=== PATIENT | female | born 1945 | race Caucasian/White ===

== ENCOUNTER 2016-10-03 09:40 | Inpatient (IN) ==
--- NOTE | 2016-10-03 09:58 | Emergency Department Note ---
Disposition Clinical Impression: New onset atrial fibrillation, Atrial fibrillation with RVR Disposition: Admitted As Inpatient Condition: Fair Referrals: NO,PCP [Non-Partnered Physician] - Forms: ED Satisfaction Letter SOB HPI - General Chief Complaint: ED Shortness of Breath/Dyspnea Stated Complaint: MICHELLE Time Seen by Provider: 10/03/16 09:44 Source: EMS Limitations: no limitations Nursing Notes Reviewed: Yes Vital Signs Reviewed: Yes - History of Present Illness Pt Subjective Complaint: shortness of breath Onset (ago): week(s) (2) Severity: moderate Consistency/Duration: constant, gradually worsening Improves with: oxygen, rest Worsens with: exertion Known history of: COPD Associated symptoms: Denies: fever, sputum production, nausea/vomiting, syncope Treatment prior to arrival: oxygen Cough present: No - Related Data Home Medications Medication Instructions Recorded Confirmed Allopurinol 11/03/15 Atenolol 11/03/15 Atorvastatin 11/03/15 Clopidogrel 11/03/15 Diltiazem 11/03/15 Gabapentin Enacarbil 11/03/15 K-Dur 11/03/15 Lasix 11/03/15 Levothyroxine 11/03/15 Lisinopril 11/03/15 Nitrostat 11/03/15 Omeprazole 11/03/15 Percocet 10-325 mg Tablet 11/03/15 Prednisone 11/03/15 Vitamin D3 11/03/15 Previous Rx's Medication Instructions Recorded Diltiazem HCl [Cardizem Cd] 360 mg PO DAILY #30 cap.er.24h 11/03/15 Allergies Allergy/AdvReac Type Severity Reaction Status Date / Time aspirin Allergy Anaphylaxis Verified 10/03/16 09:58 azithromycin Allergy Anaphylaxis Verified 10/03/16 09:58 cephalexin Allergy Anaphylaxis Verified 10/03/16 09:58 clonidine Allergy Anaphylaxis Verified 10/03/16 09:58 Influenza Virus Vaccines Allergy Anaphylaxis Verified 10/03/16 09:58 iodine Allergy Anaphylaxis Verified 10/03/16 09:58 latex Allergy Anaphylaxis Verified 10/03/16 09:58 levofloxacin [From Levaquin] Allergy Anaphylaxis Verified 10/03/16 09:58 nadolol Allergy Anaphylaxis Verified 10/03/16 09:58 nifedipine Allergy Anaphylaxis Verified 10/03/16 09:58 Penicillins Allergy Hives Verified 11/03/15 15:04 Pneumococcal Vaccine Allergy Anaphylaxis Verified 10/03/16 09:58 Sulfa (Sulfonamide Allergy Hives Verified 11/03/15 15:04 Antibiotics) All systems ED: reviewed and negative except as stated. Constitutional: Reports: weakness Cardiovascular: Reports: palpitations, dyspnea on exertion Past Medical History - Past Medical History Source: patient, old records reviewed, nursing notes reviewed Medical history: Reports: cancer, CHF, COPD, hypertension, renal disease, other - Social History Smoking Status: Never smoker Smokeless Tobacco Status: No Alcohol use: Reports: none Drug use: Reports: none Physical Exam - General Limitations: no limitations General appearance: alert - Head Head exam: atraumatic, normocephalic, normal inspection - Eye Eye exam: Present: normal appearance, PERRL, EOMI - Expanded Eye Exam Pupils: Left: reactive - ENT ENT exam: normal exam, normal oropharynx, mucous membranes moist - Expanded ENT Exam External ear exam: Present: normal external inspection Mouth exam: Present: normal external inspection Teeth exam: Present: normal inspection Throat exam: Present: normal inspection - Neck Neck exam: Present: normal inspection, full ROM, trachea midline - Chest Chest inspection: Present: normal inspection, symmetric chest wall rise - Respiratory Respiratory exam: Present: prolonged expiratory phase (diminished bilat) - Cardiovascular Cardiovascular exam: Present: tachycardia, irregular rhythm - Abdominal Exam Abdominal exam: Present: soft, Non-Tender. Absent: tenderness, distention, guarding, rebound, rigidity - Extremities Exam Extremities exam: Present: normal inspection, full ROM. Absent: tenderness, pedal edema - Expanded Upper Extremity Exam Shoulder exam: Present: normal inspection, full ROM Arm exam: Present: normal inspection, full ROM Elbow exam: Present: normal inspection, full ROM Forearm/Wrist exam: Present: normal inspection, full ROM Hand exam: Present: normal inspection, full ROM Vascular exam: Normal: capillary refill, radial pulse - Expanded Lower Extremity Exam Hip/Pelvis exam: Present: normal inspection, full ROM Upper leg exam: Present: normal inspection, full ROM Knee exam: Present: normal inspection, full ROM Lower leg exam: Present: normal inspection, full ROM Ankle exam: Present: normal inspection, full ROM Foot/toe exam: Present: normal inspection, full ROM Neurovascular/Tendon exam: Absent: motor deficit, sensory deficit, tendon deficit - Back Exam Back exam: Present: normal inspection, full ROM. Absent: tenderness - Neurological Exam Neurological exam: Present: alert, oriented X3 - Expanded Neurological Exam Patient oriented to: Present: person, place, time Coma Scale Eye Opening: Spontaneous Coma Scale Motor Response: Obeys Commands Coma Scale Verbal Response: Oriented Coma Scale Total: 15 - Psychiatric Psychiatric exam: Present: normal affect, normal mood - Skin Skin exam: Present: warm, dry, intact, normal color Course - Reevaluation(s) Reevaluation #1: HR 88 still in afib Time: 11:18 Vital Signs Temperature 98.3 F 10/03/16 09:41 Pulse Rate 134 10/03/16 09:41 Respiratory Rate 22 10/03/16 09:41 Blood Pressure 146/116 10/03/16 09:41 O2 Sat by Pulse Oximetry 95 10/03/16 09:41 Temperature 98.3 F 10/03/16 09:41 Pulse Rate 98 10/03/16 11:08 Respiratory Rate 20 10/03/16 11:08 Blood Pressure 174/110 10/03/16 11:08 O2 Sat by Pulse Oximetry 94 10/03/16 11:08 Oxygen Delivery Oxygen Delivery Room Air Shortness of Breath/Dyspnea - Differential Diagnosis Likely: acute exacerbation of chronic obstructive airways disease, congestive heart failure, pneumonia, asthma with exacerbation, pulmonary embolism, pneumothorax, arrhythmia - Medical Records Medical records reviewed: Yes I reviewed the patient's medical records. - Lab Data Lab results reviewed: Yes I reviewed the patient's lab results. Result diagrams: 10/03/16 10:14 10/03/16 10:14 Lab Results 10/03/16 10/03/16 10/03/16 Range/Units 10:14 10:14 10:14 WBC 9.7 (4.3-11.1) K/mcL RBC 4.77 (3.82-4.97) M/mcL Hgb 14.4 (11.5-15.4) g/dL Hct 42.3 (35.3-44.9) % MCV 88.7 (83.0-100.0) fL MCH 30.2 (28.0-33.3) pg MCHC 34.0 (31.6-35.5) g/dL RDW 13.2 (11.5-14.5) % Plt Count 294 (140-400) K/mcL MPV 10.1 (9.4-12.4) fL Immature Gran % 0.3 (0-4) % Seg Neutrophils % 82.9 % Lymphocytes % 11.5 % Monocytes % 5.0 % Eosinophils % 0.1 % Basophils % 0.2 % Neutrophils # 8.0 (1.6-8.9) K/mcL Lymphocytes # 1.1 (0.6-4.6) K/mcL Monocytes # 0.5 (0.0-1.3) K/mcL Eosinophils # 0.0 (0.0-0.6) K/mcL Basophils # 0.0 (0.0-0.2) K/mcL Immature Plt Fraction 4.4 (1.1-6.1) % PT 12.3 H (9.4-12.1) Seconds INR 1.1 APTT 29.0 (26.0-36.0) Seconds Sodium 140 (136-145) mEq/L Potassium 3.8 (3.5-4.5) mEq/L Chloride 103 (98-109) mEq/L Carbon Dioxide 25 (19-29) mEq/L BUN 12 (7-20) mg/dL Creatinine 0.88 (0.57-1.11) mg/dL Est GFR ( Amer) > 60 (> 60) Est GFR (Non-Af Amer) > 60 (> 60) BUN/Creatinine Ratio 14 (6-26) Glucose 131 H (70-99) mg/dL Calculated Osmolality 292 (280-300) Calcium 10.1 (8.6-10.8) mg/dL Troponin I (0-0.03) ng/mL B-Natriuretic Peptide (0-100) pg/mL 10/03/16 10/03/16 Range/Units 10:14 10:14 WBC (4.3-11.1) K/mcL RBC (3.82-4.97) M/mcL Hgb (11.5-15.4) g/dL Hct (35.3-44.9) % MCV (83.0-100.0) fL MCH (28.0-33.3) pg MCHC (31.6-35.5) g/dL RDW (11.5-14.5) % Plt Count (140-400) K/mcL MPV (9.4-12.4) fL Immature Gran % (0-4) % Seg Neutrophils % % Lymphocytes % % Monocytes % % Eosinophils % % Basophils % % Neutrophils # (1.6-8.9) K/mcL Lymphocytes # (0.6-4.6) K/mcL Monocytes # (0.0-1.3) K/mcL Eosinophils # (0.0-0.6) K/mcL Basophils # (0.0-0.2) K/mcL Immature Plt Fraction (1.1-6.1) % PT (9.4-12.1) Seconds INR APTT (26.0-36.0) Seconds Sodium (136-145) mEq/L Potassium (3.5-4.5) mEq/L Chloride (98-109) mEq/L Carbon Dioxide (19-29) mEq/L BUN (7-20) mg/dL Creatinine (0.57-1.11) mg/dL Est GFR ( Amer) (> 60) Est GFR (Non-Af Amer) (> 60) BUN/Creatinine Ratio (6-26) Glucose (70-99) mg/dL Calculated Osmolality (280-300) Calcium (8.6-10.8) mg/dL Troponin I 0.01 (0-0.03) ng/mL B-Natriuretic Peptide 875 H (0-100) pg/mL - Radiology Data Radiology results reviewed: Yes I reviewed the patient's radiology results. - EKG Data EKG attestation: Yes I reviewed and interpreted this EKG. Rate: Reports: tachycardia (112) Rhythm: Reports: A.Fib [place]/QRS: Reports: normal Interpretation: Reports: nonspecific ST-T wave changes Critical Care Time Critical Care Time: Yes Total Critical Care Time: 40 Attestation: Critical care performed: Time is exclusive of separately billable procedures. Time includes: direct patient care, patient reassessment, coordination of patient care, interpretation of data (laboratory data, radiology data, and respiratory data), review of patient's medical records, medical consultation and documentation of patient care. Procedures included in critical care time: Procedures excluded from critical care time:
[2016-10-03 10:35] LABS: Basophils % 0.2 %; Eosinophils % 0.1 %; Hematocrit 42.3 % (35.3-44.9); Hemoglobin 14.4 g/dL (11.5-15.4); Immature Granulocytes % 0.3 % (0-4); Immature Platelets 4.4 % (1.1-6.1); Lymphocytes # 1.1 K/mcL (0.6-4.6); Lymphocytes % 11.5 %; Mean Corpuscular Hemoglobin 30.2 pg (28.0-33.3); Mean Corpuscular Volume 88.7 fL (83.0-100.0); Mean Platelet Volume 10.1 fL (9.4-12.4); Monocytes # 0.5 K/mcL (0.0-1.3); Platelet Count 294 K/mcL (140-400); Red Blood Count 4.77 M/mcL (3.82-4.97); Red Cell Distribution Width 13.2 % (11.5-14.5); Segmented Neutrophils % 82.9 %
[2016-10-03 10:49] LABS: BUN/Creatinine Ratio 14 (6-26); Blood Urea Nitrogen 12 mg/dL (7-20); Calcium 10.1 mg/dL (8.6-10.8); Carbon Dioxide 25 mEq/L (19-29); Chloride 103 mEq/L (98-109); Glucose 131 mg/dL (70-99); Osmolality,Calculated 292 (280-300); Potassium 3.8 mEq/L (3.5-4.5); Sodium 140 mEq/L (136-145); eGFR For African Americans > 60 (> 60); eGFR For Non-African Americans > 60 (> 60)
[2016-10-03 10:51] LABS: INR 1.1; Prothrombin Time 12.3 Seconds (9.4-12.1)
[2016-10-03] MEDS ORDERED: Furosemide 40 MG/4 ML VIAL IVP ONE (11:43)
[2016-10-03] MEDS ORDERED: *HR* Enoxaparin 100 MG/ML SYRINGE SQ STA (11:51)
[2016-10-03] MEDS: Nitroglycerin 25 MG/250 ML INFUS..BTL IVC SCH (11:58)
--- NOTE | 2016-10-03 12:31 | Internal Med History&Physical ---
Date of Encounter: 10/04/16 Time of Encounter: 12:27 Assessment and Plan (1) Pulmonary edema Current visit: Yes Status: Acute 80 mg IV Lasix given in the emergency room. We will start the patient on lasix 40 mg IV twice a day. intake and output monitoring. Likely related to diastolic dysfunction from rapid aFIB. She will also be started on nitroglycerin drip. Echocardiogram Qualifiers: Qualified Code(s): J81.0 - Acute pulmonary edema (2) COPD (chronic obstructive pulmonary disease) Current visit: Yes Status: Acute No active wheezing. no need for steroids. Qualifiers: Qualified Code(s): J44.9 - Chronic obstructive pulmonary disease, unspecified (3) Atrial fibrillation with RVR Current visit: Yes Status: Acute Patient haS leland vasc score of at at least 3 because of age female sex and hypertension so should receive anticoagulation if no contraindications exist. However, she had a history of massive G.I. bleed 30 years ago. No recurrence. I gave the patient one dose of Lovenox 1 mg per KG. She is too uncomfortable to discuss long-term anticoagulation. This will be entertained throughout hospitalization. Rate is currently controlled with Cardizem drip. Echocardiogram (4) Acute respiratory failure with hypoxia Current visit: Yes Status: Acute Internal Medicine - H&P: HPI Chief complaint: sob History of present illness: Ms. Santoyo is a 71 year old female with past medical history of COPD on nighttime oxygen presents to the emergency room today with a main complain of shortness of breath. For the past week patient has been noticing worsening shortness of breath that worsens when she lays flat improve was sitting up in addition to bilateral lower extremity swelling. She denies increasing cough sputum production. No chest pain. No fevers or chills. She was found to be in atrial fibrillation with rapid ventricular response in the emergency room. No prior history of AFib. She had a prior history of massive GI bleeding 30 years ago. During my interview patient was in respiratory distress. Speaking in 3 to 4 war sentence. She was requiring 3 1/2 L of nasal oxygen to keep her saturation and early 90s. She could not tolerate Rocha catheter placed in the ER so it was removed. She refuses BiPAP. Past Med Surg Social Fam HX - Past Medical History Medical history: cancer, CHF, COPD, hypertension, renal disease, other - Social History Smoking Status: Never smoker Smokeless Tobacco Status: No Alcohol use: none Drug use: none - Family History Mother Living Status: Cause of : cancer Father Living Status: Still Living Internal Medicine - H&P: Meds Allopurinol [Zyloprim 100 MG] 100 mg PO DAILY 11/03/15 [History] Atenolol [Tenormin] 50 mg PO BID 11/03/15 [History] Atorvastatin [Lipitor] 10 mg PO HS 11/03/15 [History] Cholecalciferol (D-3) [Vitamin D] 2,000 unit PO DAILY 11/03/15 [History] Clopidogrel [Plavix] 75 mg PO DAILY 11/03/15 [History] Diltiazem HCl [Cardizem Cd] 360 mg PO DAILY #30 cap.er.24h 11/03/15 [Rx] Furosemide [Lasix] 80 mg PO DAILY 11/03/15 [History] Gabapentin [Neurontin] 300 mg PO TID 11/03/15 [History] Levothyroxine [Levothyroxine Sodium] 137 mcg PO DAILY 11/03/15 [History] Lisinopril [Zestril] 40 mg PO BID 11/03/15 [History] Nitroglycerin [Nitrostat] 0.4 mg SL AD PRN 11/03/15 [History] Omeprazole [PriLOSEC] 20 mg PO DAILY 11/03/15 [History] OxyCODONE/APAP 10/325 [Percocet 10/325 MG] 1 tab PO Q4-6H PRN 11/03/15 [History] Potassium Chloride [K-Tab ER] 20 meq PO TID 11/03/15 [History] Albuterol Sulfate [Proair Hfa] 2 puff IH Q4HR PRN 10/03/16 [History] FLUoxetine HCl [PROzac] 20 mg PO DAILY 10/03/16 [History] Oxygen 2 l .ROUTE AD 10/03/16 [History] Allergies aspirin Allergy (Verified 10/03/16 09:58) Anaphylaxis azithromycin Allergy (Verified 10/03/16 09:58) Anaphylaxis cephalexin Allergy (Verified 10/03/16 09:58) Anaphylaxis clonidine Allergy (Verified 10/03/16 09:58) Anaphylaxis Influenza Virus Vaccines Allergy (Verified 10/03/16 09:58) Anaphylaxis iodine Allergy (Verified 10/03/16 09:58) Anaphylaxis latex Allergy (Verified 10/03/16 09:58) Anaphylaxis levofloxacin [From Levaquin] Allergy (Verified 10/03/16 09:58) Anaphylaxis nadolol Allergy (Verified 10/03/16 09:58) Anaphylaxis nifedipine Allergy (Verified 10/03/16 09:58) Anaphylaxis Penicillins Allergy (Verified 11/03/15 15:04) Hives Pneumococcal Vaccine Allergy (Verified 10/03/16 09:58) Anaphylaxis Sulfa (Sulfonamide Antibiotics) Allergy (Verified 11/03/15 15:04) Hives All Systems PM: A 10-system review of systems was performed and is negative for pertinent findings except as documented above in the HPI. Review of systems: 10 point review of systems is negative except for HPI - Constitutional Vitals: Temp Pulse Resp BP Pulse Ox 98.3 F 98 18 139/105 94 10/03/16 09:41 10/03/16 11:08 10/03/16 12:24 10/03/16 12:24 10/03/16 11:08 Exam: Gen.: patient is alert oriented times 3 not in distress. Cardiac: normal S1 S2 no additional sounds are murmurs chest: bilateral basal crackles abdomen: soft nontender nondistended normal bowel sounds neuro: no focal deficit Internal Med - H&P Results - Labs CBC & Chem 7: 10/04/16 04:11 10/04/16 04:11
[2016-10-03] MEDS: Budesonide/Formoterol 80/4.5 MDI IH SCH ×2 (15:31→21:45)
[2016-10-03] MEDS: Ipratropium/Albuterol Neb 3 ML IH SCH ×3 (15:31→21:41)
[2016-10-03 15:47] LABS: Thyroid Stimulating Hormone 0.219 mcIU/mL (0.350-4.840)
[2016-10-03] MEDS: Furosemide 40 MG/4 ML VIAL IVP SCH (17:11)
[2016-10-03] MEDS: Ondansetron 4 MG/2 ML VIAL IVP PRN (17:52)
[2016-10-03] MEDS: Gabapentin 300 MG CAPSULE PO SCH (20:10)
[2016-10-03] MEDS: *HR* OxyCODONE/APAP 10/325 TABLET PO PRN (23:33)
[2016-10-04] MEDS ORDERED: *HR* Enoxaparin 80 MG/0.8 ML SYRINGE SQ SCH (01:00)
[2016-10-04] MEDS: Ipratropium/Albuterol Neb 3 ML IH SCH ×4 (03:59→21:47)
[2016-10-04 04:34] LABS: Basophils % 0.3 %; Eosinophils % 0.2 %; Hematocrit 39.3 % (35.3-44.9); Hemoglobin 13.1 g/dL (11.5-15.4); Immature Granulocytes % 0.4 % (0-4); Lymphocytes # 1.9 K/mcL (0.6-4.6); Mean Corpuscular HGB Conc 33.3 g/dL (31.6-35.5); Mean Corpuscular Hemoglobin 30.5 pg (28.0-33.3); Mean Corpuscular Volume 91.4 fL (83.0-100.0); Mean Platelet Volume 10.2 fL (9.4-12.4); Monocytes % 9.7 %; Neutrophils # 7.2 K/mcL (1.6-8.9); Platelet Count 277 K/mcL (140-400); Red Cell Distribution Width 13.8 % (11.5-14.5); Segmented Neutrophils % 70.4 %
[2016-10-04 04:49] LABS: Calcium 9.3 mg/dL (8.6-10.8); Magnesium 1.8 mg/dL (1.6-2.6); Potassium 3.8 mEq/L (3.5-4.5)
[2016-10-04] MEDS: Nitroglycerin 25 MG/250 ML INFUS..BTL IVC SCH (06:22)
[2016-10-04] MEDS: Furosemide 40 MG/4 ML VIAL IVP SCH ×2 (08:24→09:03)
[2016-10-04] MEDS: Ondansetron 4 MG/2 ML VIAL IVP PRN (08:25)
[2016-10-04] MEDS: FLUoxetine 20 MG CAPSULE PO SCH (08:25)
[2016-10-04] MEDS: Gabapentin 300 MG CAPSULE PO SCH ×2 (08:26→21:56)
[2016-10-04] MEDS ORDERED: Lisinopril 20 MG TABLET PO SCH (09:00)
--- NOTE | 2016-10-04 10:19 | Cardiology Consult Note ---
Date of Encounter: 10/04/16 Time of Encounter: 10:00 Assessment and Plan (1) Atrial fibrillation with RVR Current Visit: Yes Status: Acute New onset of Afib RVR, likely for >1 week. Main symptom is dyspnea, denies palpitations [id number] score of 3, (HTN, age, female gender). May increase to score of 4 after echo results (has clinical signs of CHF) Hesitant for anticoagulation due to GI bleed a few years ago HAS-BLED score of 3 (antiplatelet use, prior bleed, age), risk of major bleed 5.8% Will need to discuss risk/benefit of anticoagulation with patient. On lovenox 80 BID On Cardizem drip at 5mg/hr On Nitro drip at 20 mcg/min Echo from today shows EF of 60-65%, and some enlargement of left atrium Previous echo on 02/18/2016 with suboptimal windows. LVEF not determined, RV function normal, no pulm HTN. No current plan for cardioversion Plan for rate control Recommend transitioning to PO cardizem Recommend to d/c nitroglycerin (2) Pulmonary edema Current Visit: Yes Status: Acute Patient received total of 120mg of lasix yesterday and 40mg today I/O shows net volume loss of 1875mL Likely due to impaired cardiac ability due to uncontrolledatrial fibrillation Agree with nitro drip at 20 mcg/min Symptoms currently markedly improved BNP elevated at 875 Echocardiogram today to evaluate cardiac function. Likely secondary to CHF from atrial fibrillation Qualifiers: Chronicity: acute Qualified Code(s): J81.0 - Acute pulmonary edema (3) Acute respiratory failure with hypoxia Current Visit: Yes Status: Acute Hypoxia was present and increased WOB. Markedly improved after lasix and nitro drip Pulmonary edema present on CXR and diminished lung sounds Troponin is 0.01 x3 BNP elevated at 875 Likely secondary to CHF from uncontrolled rate of atrial fibrillation Discussion w patient/family: The assessment and plan as outlined above was discussed with the patient and/or family members who expressed understanding and agreement. All questions were answered. Thank you for involving us in the care of your patient. Please call with any questions. History of Present Illness Consult date: 10/04/16 Consult reason: New onset a-fib Chief complaint: dyspnea History of present illness: Ms. Santoyo is a 71 year old female who presented for at least 1 week of exertional dyspnea which progressed to dyspnea at rests. Also admits to orthopnea and new onset LE edema. Found to be in new onset of A-fib with rate of 134. Started on cardizem drip, received lasix, and on nitro drip. She diuresed 1875mL and feels much better today. She is not quite to her baseline in dyspnea but feels markedly improved. She states the swelling is now gone in her LE. Denies current CP. Denies cardiac history. Heart cath many years ago without stents placed. No hx of CHF. Has had angina in the past and is on beta sadie, statin, plavix, nitro, diltiazem, lisinipril. It appears she takes plavix because she is allergic to aspirin. Past Med Surg Social Fam HX - Past Medical History Medical history: cancer, CHF, COPD, hypertension, renal disease, other - Past Surgical History Surgical History: breast surgery, cholecystectomy, RON/BSO, thyroidectomy - Social History Smoking Status: Never smoker Smokeless Tobacco Status: No Alcohol use: none Drug use: none - Family History Mother Living Status: Cause of : cancer Father Living Status: Still Living Medications and Allergies Allopurinol [Zyloprim 100 MG] 100 mg PO DAILY 11/03/15 [History] Atenolol [Tenormin] 50 mg PO BID 11/03/15 [History] Atorvastatin [Lipitor] 10 mg PO HS 11/03/15 [History] Cholecalciferol (D-3) [Vitamin D] 2,000 unit PO DAILY 11/03/15 [History] Clopidogrel [Plavix] 75 mg PO DAILY 11/03/15 [History] Diltiazem HCl [Cardizem Cd] 360 mg PO DAILY #30 cap.er.24h 11/03/15 [Rx] Furosemide [Lasix] 80 mg PO DAILY 11/03/15 [History] Gabapentin [Neurontin] 300 mg PO TID 11/03/15 [History] Levothyroxine [Levothyroxine Sodium] 137 mcg PO DAILY 11/03/15 [History] Lisinopril [Zestril] 40 mg PO BID 11/03/15 [History] Nitroglycerin [Nitrostat] 0.4 mg SL AD PRN 11/03/15 [History] Omeprazole [PriLOSEC] 20 mg PO DAILY 11/03/15 [History] OxyCODONE/APAP 10/325 [Percocet 10/325 MG] 1 tab PO Q4-6H PRN 11/03/15 [History] Potassium Chloride [K-Tab ER] 20 meq PO TID 11/03/15 [History] Albuterol Sulfate [Proair Hfa] 2 puff IH Q4HR PRN 10/03/16 [History] FLUoxetine HCl [PROzac] 20 mg PO DAILY 10/03/16 [History] Oxygen 2 l .ROUTE AD 10/03/16 [History] Allergies aspirin Allergy (Verified 10/03/16 09:58) Anaphylaxis azithromycin Allergy (Verified 10/03/16 09:58) Anaphylaxis cephalexin Allergy (Verified 10/03/16 09:58) Anaphylaxis clonidine Allergy (Verified 10/03/16 09:58) Anaphylaxis Influenza Virus Vaccines Allergy (Verified 10/03/16 09:58) Anaphylaxis iodine Allergy (Verified 10/03/16 09:58) Anaphylaxis latex Allergy (Verified 10/03/16 09:58) Anaphylaxis levofloxacin [From Levaquin] Allergy (Verified 10/03/16 09:58) Anaphylaxis nadolol Allergy (Verified 10/03/16 09:58) Anaphylaxis nifedipine Allergy (Verified 10/03/16 09:58) Anaphylaxis Penicillins Allergy (Verified 11/03/15 15:04) Hives Pneumococcal Vaccine Allergy (Verified 10/03/16 09:58) Anaphylaxis Sulfa (Sulfonamide Antibiotics) Allergy (Verified 11/03/15 15:04) Hives All Systems Review: A 10-system review of systems was performed and is negative for pertinent findings except as documented above in the HPI. - Constitutional Constitutional: no fever(s), no headache(s) - EENT Eyes: no loss of vision - Cardiovascular Cardiovascular: dyspnea at rest, dyspnea on exertion, leg edema, no palpitations - Respiratory Respiratory: dyspnea, no cough - Gastrointestinal Gastrointestinal: no abdominal pain - Genitourinary Genitourinary: no dysuria - Integumentary Integumentary: no rash - Psychiatric Psychiatric: anxiety, depression Physical Examination Vital Signs, Last 4 Hours Temp Pulse Resp BP Pulse Ox 10/04/16 08:10 97.6 F 10/04/16 07:49 103 10/04/16 07:31 103 16 118/78 94 General: Conversant HEENT: Atraumatic Neck: No JVD Cardiac: Other (irregular rhythm. No murmur. rate normal) Lungs: Other (diminshed breath sounds throughout) Neuro: Alert and responsive Abdomen: Soft, Non-Tender Skin: No rashes noted on visualized skin Extremities: No Cyanosis, Normal Pulses, Other (trace LE edema symmetric bilaterally) Results 10/04/16 04:11 10/04/16 04:11 Lab Results 10/03/16 10/03/16 10/04/16 16:35 21:55 04:11 WBC 10.2 Hgb 13.1 Hct 39.3 Plt Count 277 Sodium Potassium Chloride Carbon Dioxide BUN Creatinine Glucose Calcium Magnesium Troponin I 0.01 0.01 10/04/16 04:11 WBC Hgb Hct Plt Count Sodium 141 Potassium 3.8 Chloride 100 Carbon Dioxide 29 BUN 16 Creatinine 1.64 H D Glucose 140 H Calcium 9.3 Magnesium 1.8 Troponin I Consult Discharge Plan - Plan Referrals: Sharath Sims DO [Primary Care Provider] - 10/11/16 1:30 pm ()
[2016-10-04] MEDS: Budesonide/Formoterol 80/4.5 MDI IH SCH ×2 (10:45→21:50)
[2016-10-04] MEDS ORDERED: Diltiazem CD (24hr) 180 MG CAPSULE PO SCH (11:45)
--- NOTE | 2016-10-04 12:00 | Internal Med Progress Note ---
<Shaka Morillo - Last Filed: 10/04/16 16:11> Date of Encounter: 10/04/16 Time of Encounter: 11:56 - Assessment and plan (1) Pulmonary edema Current Visit: Yes Status: Acute Assessment and plan: patient admitted with increased shortness of breath x1 week, worse with laying flat, bilateral lower extremity swelling. Pulmonary edema demonstrated on CXR. Patient received 80mg IV lasix at ED, now on 40mg IV lasix BID. BNP 875 Tropes x3 negative I/O: net negative 1.5L in the past 24 hours. Echo showed LVEF 60%, normal LV size and systolic function, indeterminate LV diastolic funciton, RV size normal. mild-moderate tricuspid regurgitation. estimated RVSP 33 mmHg, no pulmonary hypertension. etiology likely secondary to diastolic dysfunction. Plan: cardio on board for recommendations. holding lasix and lisinopril due to JANNY nitro drip stopped due to hypotension. PO cardizem to 120 PO BID per cardiology. stop IV cardizem continue atenolol. strict I/O Qualifiers: Chronicity: acute Qualified Code(s): J81.0 - Acute pulmonary edema (2) CHF (congestive heart failure) Current Visit: Yes Status: Acute Assessment and plan: plan as above Qualifiers: Congestive heart failure type: diastolic Congestive heart failure chronicity: acute on chronic Qualified Code(s): I50.33 - Acute on chronic diastolic (congestive) heart failure (3) Atrial fibrillation with RVR Current Visit: Yes Status: Acute Assessment and plan: New onset Afib with RVR CHAds/Vasc score at least 3. Patient not on anticoagulation at home, has hx of GI bleed 30 years ago. Has Bled score: 4 (HTN, prior bleeding, age, antiplatelet): alternatives to anticoagulation should be considered, 8.9% risk Plan: Eliquis started by cardiology, and d/c plavix. Transitioned to PO cardizem D/C nitro drip appreciate cardiology recommendations. (4) COPD (chronic obstructive pulmonary disease) Current Visit: Yes Status: Acute Assessment and plan: patient has hx of COPD, on 2L oxygen at night. currently requiring 2L oxygen continuously Plan: wean off oxygen as tolerated continue bronchodilators. Qualifiers: COPD type: unspecified COPD Qualified Code(s): J44.9 - Chronic obstructive pulmonary disease, unspecified (5) Hypothyroidism Current Visit: Yes Status: Acute Assessment and plan: decreased home dose of synthroid to 112 due to elevated TSH. Qualifiers: Hypothyroidism type: unspecified Qualified Code(s): E03.9 - Hypothyroidism , unspecified (6) DVT prophylaxis Current Visit: Yes Status: Acute Assessment and plan: started on Eliquis today by cardiology. - Subjective Interval history: 71 year old female evaluated. She was sitting at the side of the bed. She denies nausea, vomiting, diarrhea, fever, chills, dizziness. She denies any pain. States that her breathing is improved since admission. She denies any complaints today. - Constitutional Vitals: Temp Pulse Resp BP Pulse Ox 97.4 F L 106 16 95/69 94 10/04/16 11:25 10/04/16 11:25 10/04/16 11:25 10/04/16 11:25 10/04/16 11:25 General appearance: Present: A&O X 3, pleasant, no acute distress, answers questions appropriately - Head Head exam: Present: atraumatic, normocephalic - Neck Neck exam general surgery: Present: supple, trachea midline - Respiratory Additional comments: rales heard on left side. decreased breath sounds present on lower lobes bilaterally. - Cardiovascular Cardiovascular exam: Present: irregular rhythm - GI/Abdominal GI/Abdominal exam: Present: distended, normal bowel sounds. Absent: tenderness - Extremities Exam Extremities exam: Absent: cyanotic Additional comments: +1 pitting edema on lower extremities bilaterally. - Neurological Exam Neurological exam: Present: alert, oriented X3, no focal deficits - Psychiatric Psychiatric exam: Present: normal affect, normal mood Internal Medicine: Result - Labs CBC & Chem 7: 10/04/16 04:11 10/04/16 04:11 Labs: Short CBC 10/04/16 Range/Units 04:11 WBC 10.2 (4.3-11.1) K/mcL Hgb 13.1 (11.5-15.4) g/dL Hct 39.3 (35.3-44.9) % Plt Count 277 (140-400) K/mcL Neutrophils # 7.2 (1.6-8.9) K/mcL BMP 10/04/16 04:11 Sodium 141 Potassium 3.8 Chloride 100 Carbon Dioxide 29 BUN 16 Creatinine 1.64 H D Glucose 140 H Calcium 9.3 Cardiac Enzymes 10/03/16 10/03/16 Range/Units 16:35 21:55 Troponin I 0.01 0.01 (0-0.03) ng/mL - ABG Interpretation ABG results: PT/INR, D-dimer PT 12.3 Seconds (9.4-12.1) H 10/03/16 10:14 Consult Discharge Plan - Plan Referrals: Sharath Sims DO [Primary Care Provider] - 10/11/16 1:30 pm () <Jb Peterson - Last Filed: 10/04/16 17:43> Date of Encounter: 10/04/16 - Assessment and plan (1) Acute respiratory failure with hypoxia Current Visit: Yes Status: Acute Assessment and plan: Due to pulmonary edema. Wean oxygen as able. (2) Pulmonary edema Current Visit: Yes Status: Acute Qualifiers: Chronicity: acute Qualified Code(s): J81.0 - Acute pulmonary edema (3) CHF (congestive heart failure) Current Visit: Yes Status: Acute Qualifiers: Congestive heart failure type: diastolic Congestive heart failure chronicity: acute on chronic Qualified Code(s): I50.33 - Acute on chronic diastolic (congestive) heart failure (4) New onset atrial fibrillation Current Visit: Yes Status: Acute Assessment and plan: Persistent. (5) COPD (chronic obstructive pulmonary disease) Current Visit: Yes Status: Acute Qualifiers: COPD type: unspecified COPD Qualified Code(s): J44.9 - Chronic obstructive pulmonary disease, unspecified (6) Hypothyroidism Current Visit: Yes Status: Acute Qualifiers: Hypothyroidism type: acquired Qualified Code(s): E03.9 - Hypothyroidism, unspecified - Constitutional Vitals: Temp Pulse Resp BP Pulse Ox 97.4 F L 114 16 128/79 96 10/04/16 16:05 10/04/16 16:05 10/04/16 16:05 10/04/16 16:05 10/04/16 16:05 Internal Medicine: Result - Labs CBC & Chem 7: 10/04/16 04:11 10/04/16 04:11 Labs: Short CBC 10/04/16 Range/Units 04:11 WBC 10.2 (4.3-11.1) K/mcL Hgb 13.1 (11.5-15.4) g/dL Hct 39.3 (35.3-44.9) % Plt Count 277 (140-400) K/mcL Neutrophils # 7.2 (1.6-8.9) K/mcL BMP 10/04/16 04:11 Sodium 141 Potassium 3.8 Chloride 100 Carbon Dioxide 29 BUN 16 Creatinine 1.64 H D Glucose 140 H Calcium 9.3 Cardiac Enzymes 10/03/16 Range/Units 21:55 Troponin I 0.01 (0-0.03) ng/mL - ABG Interpretation ABG results: PT/INR, D-dimer PT 12.3 Seconds (9.4-12.1) H 10/03/16 10:14 - Attending Attestation I examined this patient and my medical decision-making was reviewed with the Resident Physician on 10/04/16. I agree with the documented findings, disposition and treatment plan as described except to the extent set forth below. Ms. Santoyo is currently admitted for acute exac of chronic diastolic heart failure/ pulmonary edema. She remains high risk due to potential for worsening respiratory status. Ms Santoyo is off Card drip. She has no specific complaints though her heartrate is still up and down. No fever or chills. No chest pain. Appreciate cardiology input. Exam Alert. Comfortable Heart irreg 90-140 Lungs diminished I/P 1. Acute pulmonary edema 2. acute diastolic heart failure Further diagnoses and plan as above.
--- NOTE | 2016-10-04 14:27 | ECHO - Doppler Report ---
Echocardiogram Name: Maddi Santoyo Date of Study: 10/04/2016 Date: 1945 Ht: 58.0 in Medical Record#: [id number] Age: 71 Wt: 194.0 lb Gender: Female BSA: 1.8 Order #: [id number] Location: [facility] Room #: 2N14 Reading Physician: Janie Garibay DO Supervisor Bindery: Rafael Apple RN Ordering Physician: Juliano Trujillo MD Primary Physician: Sharath Sims DO Indications: Arrhythmia Impressions: LVEF 60%. Normal left ventricular size and systolic function. Indeterminate left ventricular diastolic function RV size is normal. Function appears normal in the PLAX and PSAX views but not well seen in apical or subcostal views. Mild-moderate tricuspid regurgitation. Estimated RVSP was 33 mmHg. No pulmonary hypertension. Left Ventricular Wall Motion: Rest Echo Findings All wall segments showed normal motion. Findings: Study Quality * Technically adequate exam. Left Ventricle * LVEF 60%. * Normal LV chamber size, wall thickness and function. * Indeterminate diastolic function. ECG Findings * Atrial fibrillation. Aortic Valve * Trileaflet aortic valve. * Normal aortic valve structure. * No aortic stenosis. * Trace aortic regurgitation. Mitral Valve * Normal mitral valve structure. * No mitral stenosis. * Trace mitral regurgitation. Tricuspid Valve * Normal tricuspid valve structure. * Mild-moderate tricuspid regurgitation. * Estimated RA pressure is 3 mmHg. * Estimated RVSP is 33 mmHg. * No pulmonary hypertension. Pulmonic Valve * Pulmonic valve is not well visualized. * No pulmonic stenosis. * No pulmonic regurgitation. Pulmonary Artery * Pulmonary artery not well visualized. Right Ventricle * Normal right ventricular size. Function appears normal in the PLAX and PSAX views. Not perfectly visualized in the apical or subcostal views. TD velocity 9.65 cm/s. Right Atrium * Normal right atrial size. Left Atrium * Severely dilated left atrium. Interatrial Septum * No evidence of PFO by color Doppler. IVC * Normal IVC dimensions and inspiratory collapse. Pericardium * There is no pericardial effusion present. Aorta * Normally sized aortic root. History Hypertension Hypercholesteremia Family History of CAD Congestive Heart Failure 02/18/2016 a Previous Echo was performed. Measurements: BP: 118/ 78 2D Normal Values RVIDd: 2.90 cm <2.7 cm IVSd: 1.00 cm 0.6 - 1.0 cm LVIDd: 4.00 cm 3.7 - 5.6 cm LVPWd: 1.00 cm 0.6 - 1.1 cm LVIDs: 2.40 cm 1.5 - 3.6 cm LA: 3.30 cm 2.0 - 4.0cm %FS: 40.00 cm >25 % LVOT Diam: 2.00 cm LA volume: 82 Mitral Valve Peak E:.89 m/sec Peak E' Lat Dillon:7.12 cm/s Peak E' Med Dillon:5.75 cm/s E/E' Lat Ratio:12.5 E/E' Med Ratio:15.5 Tricuspid Valve TV Regurg Peak Grad: 30.00mmHg TV Regurg Peak Dillon: 2.73m/sec Updated by Janie Garibay on 10/04/2016 2:17:35 PM electronically signed on 10/04/2016 2:20:58 PM with status of Final Wall Motion Scott: 1=Normal, 2=Hypokinesis, 3=Akinesis, 4=Dyskinesis, 5=Aneurysmal, 6=Hyperkinetic, X=Not Visualized (Blank)=Missing
[2016-10-04] MEDS ORDERED: *HR* Metoprolol 5 MG/5 ML VIAL IVP PRN (16:02)
[2016-10-04] MEDS: APIXABAN 5 MG TABLET PO SCH (21:55)
[2016-10-04] MEDS: Diltiazem CD (24hr) 120 MG CAPSULE PO SCH (21:56)
[2016-10-05] MEDS: Ipratropium/Albuterol Neb 3 ML IH SCH ×4 (04:32→22:11)
[2016-10-05] MEDS: *HR* OxyCODONE/APAP 10/325 TABLET PO PRN ×2 (04:47→21:53)
[2016-10-05 06:11] LABS: Basophils % 0.2 %; Eosinophils # 0.1 K/mcL (0.0-0.6); Eosinophils % 1.7 %; Hematocrit 38.6 % (35.3-44.9); Hemoglobin 12.9 g/dL (11.5-15.4); Immature Granulocytes % 0.4 % (0-4); Lymphocytes # 1.8 K/mcL (0.6-4.6); Lymphocytes % 21.6 %; Mean Corpuscular HGB Conc 33.4 g/dL (31.6-35.5); Mean Corpuscular Hemoglobin 30.9 pg (28.0-33.3); Mean Corpuscular Volume 92.6 fL (83.0-100.0); Monocytes # 0.6 K/mcL (0.0-1.3); Monocytes % 7.9 %; Neutrophils # 5.6 K/mcL (1.6-8.9); Platelet Count 241 K/mcL (140-400); Red Blood Count 4.17 M/mcL (3.82-4.97); Red Cell Distribution Width 13.9 % (11.5-14.5); Segmented Neutrophils % 68.2 %
[2016-10-05 06:23] LABS: Calcium 8.9 mg/dL (8.6-10.8); Potassium 3.5 mEq/L (3.5-4.5)
[2016-10-05 06:47] LABS: Triiodothyronine (T3) Total 0.58 ng/mL (0.58-1.59)
[2016-10-05] MEDS ORDERED: Furosemide 40 MG/4 ML VIAL IVP SCH (09:00)
[2016-10-05] MEDS ORDERED: *HR* Enoxaparin 100 MG/ML SYRINGE SQ SCH (09:00)
[2016-10-05] MEDS: APIXABAN 5 MG TABLET PO SCH ×2 (09:04→21:54)
[2016-10-05] MEDS: FLUoxetine 20 MG CAPSULE PO SCH (09:05)
[2016-10-05] MEDS: Gabapentin 300 MG CAPSULE PO SCH ×2 (09:06→21:54)
[2016-10-05] MEDS: Diltiazem CD (24hr) 120 MG CAPSULE PO SCH ×2 (09:06→21:54)
[2016-10-05] MEDS ORDERED: 0.9 % Sodium Chloride 1,000 ML IVC SCH (09:15)
[2016-10-05] MEDS: Budesonide/Formoterol 80/4.5 MDI IH SCH ×2 (10:53→22:12)
--- NOTE | 2016-10-05 14:27 | Electrocardiograph Report ---
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 : 1945 Requested By: Gio Vo Order Number: [id number] Reading MD: Kiran Chavez MD Measurements Intervals [place] Rate: 112 P: NC: 0 QRS: -1 QRSD: 96 T: 127 QT: 315 QTc: 381 Interpretive Statements ATRIAL FIBRILLATION WITH RAPID VENTRICULAR RESPONSE MINIMAL VOLTAGE CRITERIA FOR LVH, CONSIDER NORMAL VARIANT [MEETS CRITERIA IN ONE OF: R(aVL), S(V1), R(V5), R(V5/V6)+S(V1)] POSSIBLE ANTERIOR MYOCARDIAL INFARCTION [30 ms Q WAVE IN V3/V4, OR R < 0.2 mV IN V4], PROBABLY OLD MODERATE T-WAVE ABNORMALITY, CONSIDER LATERAL ISCHEMIA [-0.1+ mV T WAVE IN I/aVL/V5/V6] Electronically Signed On 10-05-2016 14:25:46 EDT by iKran Chavez MD
--- NOTE | 2016-10-05 18:56 | Internal Med Progress Note ---
Date of Encounter: 10/05/16 Time of Encounter: 10:00 - Assessment and plan (1) Atrial fibrillation with RVR Current Visit: Yes Status: Acute Assessment and plan: New onset Afib with RVR CHAds/Vasc score at least 3. Patient not on anticoagulation at home, has hx of GI bleed 30 years ago. Has Bled score: 4 (HTN, prior bleeding, age, antiplatelet): alternatives to anticoagulation should be considered, 8.9% risk Plan: Eliquis started by cardiology, and d/c plavix. Transitioned to PO cardizem D/C nitro drip appreciate cardiology recommendations. (2) Pulmonary edema Current Visit: Yes Status: Acute Assessment and plan: patient admitted with increased shortness of breath x1 week, worse with laying flat, bilateral lower extremity swelling. Pulmonary edema demonstrated on CXR. Patient received 80mg IV lasix at ED, now on 40mg IV lasix BID. BNP 875 Tropes x3 negative I/O: net negative 1.5L in the past 24 hours. Echo showed LVEF 60%, normal LV size and systolic function, indeterminate LV diastolic funciton, RV size normal. mild-moderate tricuspid regurgitation. estimated RVSP 33 mmHg, no pulmonary hypertension. etiology likely secondary to diastolic dysfunction. Plan: cardio on board for recommendations. holding lasix and lisinopril due to JANNY nitro drip stopped due to hypotension. PO cardizem to 120 PO BID per cardiology. stop IV cardizem continue atenolol. strict I/O Closely follow renal function Qualifiers: Chronicity: acute Qualified Code(s): J81.0 - Acute pulmonary edema (3) COPD (chronic obstructive pulmonary disease) Current Visit: Yes Status: Acute Assessment and plan: patient has hx of COPD, on 2L oxygen at night. currently requiring 2L oxygen continuously Plan: wean off day time oxygen as tolerated continue bronchodilators. Qualifiers: COPD type: unspecified COPD Qualified Code(s): J44.9 - Chronic obstructive pulmonary disease, unspecified (4) DVT prophylaxis Current Visit: Yes Status: Acute Assessment and plan: started on Eliquis by cardiology. (5) CHF (congestive heart failure) Current Visit: Yes Status: Acute Assessment and plan: Diastolic CHF, diuretics on hold now d/t poor renal function. Continue supportive management. Qualifiers: Congestive heart failure type: diastolic Congestive heart failure chronicity: acute on chronic Qualified Code(s): I50.33 - Acute on chronic diastolic (congestive) heart failure (6) JANNY (acute kidney injury) Current Visit: Yes Status: Acute Assessment and plan: Mild elevated creatinine, possibly due to diuretics use. Hold diuretics and lisinopril, follow renal function. Patient cannot tolerate IV fluid now because of shortness of breath and CHF. - Time Spent With Patient 25 - 35 minutes - Subjective Interval history: Patient is a 71-year-old female admitted for A. fib with rapid ventricular response and pulmonary edema. Past medical history is significant for CHF, COPD , hypertension, renal disease. Patient was seen and examined. She is not in acute respiratory distress at rest. But did have SOB when laying down. Vitals are stable. A Fib rate is well controlled. On Eliquis for anticoagulation. Diuretics is on hold because of poor renal function. We will continue closely monitor patient and the follow -up renal function.(Pt said she has only one kidney). - Constitutional Vitals: Temp Pulse Resp BP Pulse Ox 98.6 F 80 16 125/94 93 10/05/16 16:04 10/05/16 16:04 10/05/16 18:31 10/05/16 11:29 10/05/16 16:49 General appearance: Present: A&O X 3, pleasant, no acute distress, answers questions appropriately - Head Head exam: Present: atraumatic, normocephalic - Eye Eye exam: Present: PERRL, conjuntiva pink, sclera anicteric Pupils: Present: PERRL - Neck Neck exam general surgery: Present: supple, trachea midline. Absent: lymphadenopathy - Respiratory Respiratory exam: Present: CTAB. Absent: accessory muscle use, rales, rhonchi, wheezes - Cardiovascular Cardiovascular exam: Present: RRR, +S1, +S2. Absent: diastolic murmur, gallop, rubs, systolic murmur - GI/Abdominal GI/Abdominal exam: Present: normal bowel sounds, soft, no peritoneal signs. Absent: distended, tenderness - Extremities Exam Extremities exam: Present: warm, radial pulses palpable and symetrical. Absent : calf tenderness, cyanotic, pedal edema - Neurological Exam Neurological exam: Present: CN II-XII intact, oriented X3, no focal deficits. Absent: pronater drift, facial droop, speech deficit - Skin Skin exam: Present: dry, intact Internal Medicine: Result - Labs CBC & Chem 7: 10/05/16 05:55 10/05/16 05:55 Labs: Short CBC 10/05/16 Range/Units 05:55 WBC 8.1 (4.3-11.1) K/mcL Hgb 12.9 (11.5-15.4) g/dL Hct 38.6 (35.3-44.9) % Plt Count 241 (140-400) K/mcL Neutrophils # 5.6 (1.6-8.9) K/mcL BMP 10/05/16 05:55 Sodium 142 Potassium 3.5 Chloride 102 Carbon Dioxide 30 H BUN 24 H Creatinine 1.65 H Glucose 117 H Calcium 8.9 - ABG Interpretation ABG results: PT/INR, D-dimer PT 12.3 Seconds (9.4-12.1) H 10/03/16 10:14 Consult Discharge Plan - Plan Referrals: Sharath Sims DO [Primary Care Provider] - 10/11/16 1:30 pm ()
[2016-10-05] MEDS: Ondansetron 4 MG/2 ML VIAL IVP PRN (21:52)
[2016-10-06] MEDS: Ipratropium/Albuterol Neb 3 ML IH SCH ×4 (03:49→21:13)
[2016-10-06 05:12] LABS: Basophils % 0.3 %; Eosinophils # 0.1 K/mcL (0.0-0.6); Eosinophils % 1.4 %; Hematocrit 40.4 % (35.3-44.9); Hemoglobin 13.2 g/dL (11.5-15.4); Immature Granulocytes % 0.3 % (0-4); Lymphocytes # 2.2 K/mcL (0.6-4.6); Lymphocytes % 24.4 %; Mean Corpuscular HGB Conc 32.7 g/dL (31.6-35.5); Mean Corpuscular Hemoglobin 30.4 pg (28.0-33.3); Mean Corpuscular Volume 93.1 fL (83.0-100.0); Mean Platelet Volume 10.3 fL (9.4-12.4); Monocytes # 0.8 K/mcL (0.0-1.3); Monocytes % 8.6 %; Neutrophils # 5.7 K/mcL (1.6-8.9); Platelet Count 242 K/mcL (140-400); Red Blood Count 4.34 M/mcL (3.82-4.97); Red Cell Distribution Width 13.6 % (11.5-14.5)
[2016-10-06 05:29] LABS: BUN/Creatinine Ratio 25 (6-26); Blood Urea Nitrogen 26 mg/dL (7-20); Calcium 9.5 mg/dL (8.6-10.8); Carbon Dioxide 32 mEq/L (19-29); Chloride 101 mEq/L (98-109); Glucose 108 mg/dL (70-99); Osmolality,Calculated 299 (280-300); Potassium 3.7 mEq/L (3.5-4.5); Sodium 142 mEq/L (136-145); eGFR For African Americans > 60 (> 60); eGFR For Non-African Americans 51 (> 60)
[2016-10-06] MEDS: Diltiazem CD (24hr) 120 MG CAPSULE PO SCH (07:39)
[2016-10-06] MEDS: Gabapentin 300 MG CAPSULE PO SCH ×2 (07:39→20:40)
[2016-10-06] MEDS: FLUoxetine 20 MG CAPSULE PO SCH (07:40)
[2016-10-06] MEDS: APIXABAN 5 MG TABLET PO SCH ×2 (07:40→20:39)
--- NOTE | 2016-10-06 10:04 | Cardiology Progress Note ---
Date of Encounter: 10/06/16 Time of Encounter: 10:04 Assessment and Plan (1) Atrial fibrillation with RVR Current Visit: Yes Status: Acute New onset of Afib RVR, likely for >1 week. Main symptom is dyspnea, denies palpitations [id number] score of 3, (HTN, age, female gender). May increase to score of 4 after echo results (has clinical signs of CHF) Hesitant for anticoagulation due to GI bleed a few years ago HAS-BLED score of 3 (antiplatelet use, prior bleed, age), risk of major bleed 5.8% Will need to discuss risk/benefit of anticoagulation with patient. Echo from today shows EF of 60-65%, and some enlargement of left atrium Previous echo on 02/18/2016 with suboptimal windows. LVEF not determined, RV function normal, no pulm HTN. No current plan for cardioversion Currently on cardizem CD 120 BID, rate currently controlled, but could be improved. Will increase to 180 BID with added benefit of additional BP control. After risk/benefit discussion with patient, decided to start on eliquis Cardiology is signing off, please call with any questions/concerns. (2) Pulmonary edema Current Visit: Yes Status: Acute Likely secondary to CHF from atrial fibrillation Rate controlled and dyspnea has improved Qualifiers: Chronicity: acute Qualified Code(s): J81.0 - Acute pulmonary edema (3) Acute respiratory failure with hypoxia Current Visit: Yes Status: Acute Hypoxia was present and increased WOB. Markedly improved after lasix and nitro drip Pulmonary edema present on CXR and diminished lung sounds Troponin is 0.01 x3 BNP elevated at 875 Likely secondary to CHF from uncontrolled rate of atrial fibrillation Improved after treatment Discussion w patient/family: The assessment and plan as outlined above was discussed with the patient and/or family members who expressed understanding and agreement. All questions were answered. Thank you for involving us in the care of your patient. Please call with any questions. Subjective Principal diagnosis: A-fib RVR Interval history: Her dyspnea has improved since she was last seen. She has transitioned to cardizem CD 120 BID. She also agreed to eliquis which was been started. Risk/ benefit was discussed with the patient and she is more concerned about having a stroke then possible bleeding for eliquis. Objective Vital Signs, Last 4 Hours Temp Pulse Resp BP Pulse Ox 10/06/16 09:04 88 10/06/16 07:50 97.8 F 88 18 143/90 97 10/06/16 07:27 93 97 10/06/16 06:59 97.8 F 93 18 143/90 98 General: Conversant HEENT: Atraumatic Neck: No JVD Cardiac: Other (irregular rhythm. nomal rate.) Lungs: Other (diminished breath sounds bilaterally) Neuro: Alert and responsive Abdomen: Soft Skin: No rashes noted on visualized skin Extremities: Normal Pulses Results 10/06/16 04:10 10/06/16 04:10 Lab Results 10/06/16 10/06/16 04:10 04:10 WBC 8.8 Hgb 13.2 Hct 40.4 Plt Count 242 Sodium 142 Potassium 3.7 Chloride 101 Carbon Dioxide 32 H BUN 26 H Creatinine 1.06 Glucose 108 H Calcium 9.5 - VTE Documentation of Mechanical Device: Intermittent pneumatic compression device Consult Discharge Plan - Plan Referrals: Sharath Sims DO [Primary Care Provider] - 10/11/16 1:30 pm () Prescriptions: Apixaban [Eliquis] 5 mg PO BID #60 tablet
[2016-10-06] MEDS: *HR* OxyCODONE/APAP 10/325 TABLET PO PRN ×2 (10:33→20:43)
[2016-10-06] MEDS: Furosemide 40 MG TABLET PO SCH (10:34)
[2016-10-06] MEDS: Budesonide/Formoterol 80/4.5 MDI IH SCH ×2 (10:50→21:13)
[2016-10-06 12:15] LABS: CK-MB (CK isoenzymes) 0 % (0-4); CK-MM (CK-isoenzymes) 100 % (96-100)
[2016-10-06 12:15] LABS: CK-MB (CK isoenzymes) 0 % (0-4); CK-MM (CK-isoenzymes) 100 % (96-100)
[2016-10-06 12:55] LABS: CK Total (Ck Isoenzymes) 42 U/L (20-180); CK-BB (CK isoenzymes) 0 % (0-0)
[2016-10-06 12:55] LABS: CK Total (Ck Isoenzymes) 47 U/L (20-180); CK-BB (CK isoenzymes) 0 % (0-0)
--- NOTE | 2016-10-06 17:37 | Internal Med Progress Note ---
Date of Encounter: 10/06/16 Time of Encounter: 10:00 - Assessment and plan (1) Atrial fibrillation with RVR Current Visit: Yes Status: Acute Assessment and plan: New onset Afib with RVR CHAds/Vasc score at least 3. Patient not on anticoagulation at home, has hx of GI bleed 30 years ago. Has Bled score: 4 (HTN, prior bleeding, age, antiplatelet): alternatives to anticoagulation should be considered, 8.9% risk Plan: Eliquis started by cardiology, and d/c plavix. Transitioned to PO cardizem, increased to 180mg per cardio D/C nitro drip appreciate cardiology recommendations. (2) Pulmonary edema Current Visit: Yes Status: Acute Assessment and plan: patient admitted with increased shortness of breath x1 week, worse with laying flat, bilateral lower extremity swelling. Pulmonary edema demonstrated on CXR. Patient received 80mg IV lasix at ED, now on 40mg IV lasix BID. BNP 875 Tropes x3 negative I/O: net negative 1.5L in the past 24 hours. Echo showed LVEF 60%, normal LV size and systolic function, indeterminate LV diastolic funciton, RV size normal. mild-moderate tricuspid regurgitation. estimated RVSP 33 mmHg, no pulmonary hypertension. etiology likely secondary to diastolic dysfunction. Plan: cardio on board for recommendations. Renal function improved. Resart lasix and cont hold lisinopril PO cardizem to 180 PO BID per cardiology. stop IV cardizem continue atenolol. strict I/O Closely follow renal function Qualifiers: Chronicity: acute Qualified Code(s): J81.0 - Acute pulmonary edema (3) COPD (chronic obstructive pulmonary disease) Current Visit: Yes Status: Acute Assessment and plan: patient has hx of COPD, on 2L oxygen at night. currently requiring 2L oxygen continuously Plan: wean off day time oxygen as tolerated continue bronchodilators. Qualifiers: COPD type: unspecified COPD Qualified Code(s): J44.9 - Chronic obstructive pulmonary disease, unspecified (4) DVT prophylaxis Current Visit: Yes Status: Acute Assessment and plan: started on Eliquis by cardiology. (5) CHF (congestive heart failure) Current Visit: Yes Status: Acute Qualifiers: Congestive heart failure type: diastolic Congestive heart failure chronicity: acute on chronic Qualified Code(s): I50.33 - Acute on chronic diastolic (congestive) heart failure (6) JANNY (acute kidney injury) Current Visit: Yes Status: Acute - Subjective Interval history: Patient is a 71-year-old female admitted for A. fib with rapid ventricular response and pulmonary edema. Past medical history is significant for CHF, COPD , hypertension, renal disease. Patient was seen and examined. She is not in acute respiratory distress at rest. But did have SOB when laying down, which she said lasted for months. Vitals are stable. A Fib rate is well controlled. On Eliquis for anticoagulation. Improved renal function, will restart her po diuretics because pt has exertional SOB and leg swelling. Plan to d/c home if renal function stable or improving tomorrow. - Constitutional Vitals: Temp Pulse Resp BP Pulse Ox 97.9 F 89 17 147/88 93 10/06/16 17:29 10/06/16 17:29 10/06/16 17:29 10/06/16 17:29 10/06/16 17:29 General appearance: Present: A&O X 3, pleasant, no acute distress, answers questions appropriately - Head Head exam: Present: atraumatic, normocephalic - Eye Eye exam: Present: PERRL, conjuntiva pink, sclera anicteric Pupils: Present: PERRL - Neck Neck exam general surgery: Present: supple, trachea midline. Absent: lymphadenopathy - Respiratory Respiratory exam: Present: CTAB. Absent: accessory muscle use, rales, rhonchi, wheezes - Cardiovascular Cardiovascular exam: Present: RRR, +S1, +S2. Absent: diastolic murmur, gallop, rubs, systolic murmur - GI/Abdominal GI/Abdominal exam: Present: normal bowel sounds, soft, no peritoneal signs. Absent: distended, tenderness - Extremities Exam Extremities exam: Present: warm, radial pulses palpable and symetrical. Absent : calf tenderness, cyanotic, pedal edema - Neurological Exam Neurological exam: Present: CN II-XII intact, oriented X3, no focal deficits. Absent: pronater drift, facial droop, speech deficit - Skin Skin exam: Present: dry, intact Internal Medicine: Result - Labs CBC & Chem 7: 10/06/16 04:10 10/06/16 04:10 Labs: Short CBC 10/06/16 Range/Units 04:10 WBC 8.8 (4.3-11.1) K/mcL Hgb 13.2 (11.5-15.4) g/dL Hct 40.4 (35.3-44.9) % Plt Count 242 (140-400) K/mcL Neutrophils # 5.7 (1.6-8.9) K/mcL BMP 10/06/16 04:10 Sodium 142 Potassium 3.7 Chloride 101 Carbon Dioxide 32 H BUN 26 H Creatinine 1.06 Glucose 108 H Calcium 9.5 Cardiac Enzymes 10/03/16 10/03/16 Range/Units 16:35 21:55 CK-MB (CK-2) 0 0 (0-4) % - ABG Interpretation ABG results: PT/INR, D-dimer PT 12.3 Seconds (9.4-12.1) H 10/03/16 10:14 - Impressions Impressions Retroperitoneum Ultrasound 10/05/16 18:56 IMPRESSION: No hydronephrosis noted Bilateral cortical thinning. . There is right renal atrophy Increased echogenicity of the right kidney, either technical or due to underlying medical renal disease D/ / Bartolo Gipson MD / Bartolo Gipson MD Interpreting Provider: Bartolo Gipson MD - VTE Documentation of Mechanical Device: Intermittent pneumatic compression device Consult Discharge Plan - Plan Referrals: Sharath Sims DO [Primary Care Provider] - 10/11/16 1:30 pm () Prescriptions: Apixaban [Eliquis] 5 mg PO BID #60 tablet
[2016-10-06] MEDS: Ondansetron 4 MG/2 ML VIAL IVP PRN (19:57)
[2016-10-06] MEDS: Diltiazem CD (24hr) 180 MG CAPSULE PO SCH (20:39)
[2016-10-07] MEDS: Ipratropium/Albuterol Neb 3 ML IH SCH ×3 (04:46→16:02)
[2016-10-07 05:06] LABS: BUN/Creatinine Ratio 22 (6-26); Blood Urea Nitrogen 20 mg/dL (7-20); Calcium 9.1 mg/dL (8.6-10.8); Carbon Dioxide 33 mEq/L (19-29); Chloride 102 mEq/L (98-109); Glucose 106 mg/dL (70-99); Osmolality,Calculated 303 (280-300); Potassium 3.3 mEq/L (3.5-4.5); Sodium 145 mEq/L (136-145); eGFR For African Americans > 60 (> 60); eGFR For Non-African Americans > 60 (> 60)
[2016-10-07 07:18] VITALS: BP 145/94
[2016-10-07] MEDS: Gabapentin 300 MG CAPSULE PO SCH (08:18)
[2016-10-07] MEDS: FLUoxetine 20 MG CAPSULE PO SCH (08:18)
[2016-10-07] MEDS: Diltiazem CD (24hr) 180 MG CAPSULE PO SCH (08:19)
[2016-10-07] MEDS: APIXABAN 5 MG TABLET PO SCH (08:19)
[2016-10-07] MEDS: Furosemide 40 MG TABLET PO SCH (08:19)
[2016-10-07] MEDS: Ondansetron 4 MG/2 ML VIAL IVP PRN (09:10)
[2016-10-07] MEDS: Budesonide/Formoterol 80/4.5 MDI IH SCH (10:18)
--- NOTE | 2016-10-07 11:07 | Discharge Summary ---
Date of Encounter: 10/07/16 Time of Encounter: 10:00 - Discharge Diagnosis (1) Atrial fibrillation with RVR Priority: Primary Status: Acute (2) Pulmonary edema Priority: Secondary Status: Acute Qualifiers: Chronicity: acute Qualified Code(s): J81.0 - Acute pulmonary edema (3) COPD (chronic obstructive pulmonary disease) Priority: Secondary Status: Acute Qualifiers: COPD type: unspecified COPD Qualified Code(s): J44.9 - Chronic obstructive pulmonary disease, unspecified (4) DVT prophylaxis Priority: Secondary Status: Acute (5) CHF (congestive heart failure) Priority: Secondary Status: Acute Qualifiers: Congestive heart failure type: diastolic Congestive heart failure chronicity: acute on chronic Qualified Code(s): I50.33 - Acute on chronic diastolic (congestive) heart failure (6) JANNY (acute kidney injury) Priority: Secondary Status: Acute - Discharge Medications Prescriptions: Apixaban [Eliquis] 5 mg PO BID #60 tablet Diltiazem CD (24hr) [Cardizem CD] 180 mg PO BID #60 cap.er.24h Levothyroxine [Synthroid] 112 mcg PO DAILY@0630 #30 tablet Home Medications: Allopurinol [Zyloprim 100 MG] 100 mg PO DAILY 11/03/15 [History] Atenolol [Tenormin] 50 mg PO BID 11/03/15 [History] Atorvastatin [Lipitor] 10 mg PO HS 11/03/15 [History] Cholecalciferol (D-3) [Vitamin D] 2,000 unit PO DAILY 11/03/15 [History] Clopidogrel [Plavix] 75 mg PO DAILY 11/03/15 [History] Diltiazem HCl [Cardizem Cd] 360 mg PO DAILY #30 cap.er.24h 11/03/15 [Rx] Furosemide [Lasix] 80 mg PO DAILY 11/03/15 [History] Gabapentin [Neurontin] 300 mg PO TID 11/03/15 [History] Nitroglycerin [Nitrostat] 0.4 mg SL AD PRN 11/03/15 [History] Omeprazole [PriLOSEC] 20 mg PO DAILY 11/03/15 [History] OxyCODONE/APAP 10/325 [Percocet 10/325 MG] 1 tab PO Q4-6H PRN 11/03/15 [History] Potassium Chloride [K-Tab ER] 20 meq PO TID 11/03/15 [History] Albuterol Sulfate [Proair Hfa] 2 puff IH Q4HR PRN 10/03/16 [History] FLUoxetine HCl [Prozac] 20 mg PO DAILY 10/03/16 [History] Oxygen 2 l .ROUTE AD 10/03/16 [History] Apixaban [Eliquis] 5 mg PO BID #60 tablet 10/06/16 [Rx] Apixaban [Eliquis] 5 mg PO BID tablet 10/07/16 [Rx] Diltiazem CD (24hr) [Cardizem CD] 180 mg PO BID #60 cap.er.24h 10/07/16 [Rx] Levothyroxine [Synthroid] 112 mcg PO DAILY@0630 #30 tablet 10/07/16 [Rx] Allergies/Adverse Reactions: Allergies aspirin Allergy (Verified 10/03/16 09:58) Anaphylaxis azithromycin Allergy (Verified 10/03/16 09:58) Anaphylaxis cephalexin Allergy (Verified 10/03/16 09:58) Anaphylaxis clonidine Allergy (Verified 10/03/16 09:58) Anaphylaxis Influenza Virus Vaccines Allergy (Verified 10/03/16 09:58) Anaphylaxis iodine Allergy (Verified 10/03/16 09:58) Anaphylaxis latex Allergy (Verified 10/03/16 09:58) Anaphylaxis levofloxacin [From Levaquin] Allergy (Verified 10/03/16 09:58) Anaphylaxis nadolol Allergy (Verified 10/03/16 09:58) Anaphylaxis nifedipine Allergy (Verified 10/03/16 09:58) Anaphylaxis Penicillins Allergy (Verified 11/03/15 15:04) Hives Pneumococcal Vaccine Allergy (Verified 10/03/16 09:58) Anaphylaxis Sulfa (Sulfonamide Antibiotics) Allergy (Verified 11/03/15 15:04) Hives Procedures/tests Complete & Pending: Procedures Performed prior 72 hours Category Date Time Status US retroperitoneal limited [US] Routine Exams 10/05/16 18:56 Completed EV echocardiogram Routine Y 10/04/16 11:56 Completed - Notes to Outpatient Provider 1. Patient developed A. fib, on Cardizem for rate control, Eliquis 5mg bid for anticoagulation, please follow up. 2. Patient's lisinopril has been hold because of acute renal injury and her BP is acceptable. Decision for restart per PCP. Date of admission: 10/03/16 11:56 Primary care physician: Gulshan Hemphill Consults: 10/03/16 14:45 Consult to Hadoop Engineer [CONS] Routine Reason for SW Consult: Home O2. Lives alone. Discharging clinician: Tracy Jara Anticipated date of discharge: 10/07/16 - Patient Status Disposition: Home, Self-Care Condition: Good Functional capacity at discharge: independent ambulation Overall status at discharge: patient is back to baseline - Discharge Instructions Follow Up With: Sharath Sims DO [Primary Care Provider] - 10/11/16 1:30 pm () - Diet and Activity Activity: increase activity as tolerated Diet: low fat, low cholesterol, low salt diet Interval History: Ms. Santoyo is a 71 year old female with past medical history of COPD on nighttime oxygen presents to the emergency room today with a main complain of shortness of breath. For the past week patient has been noticing worsening shortness of breath that worsens when she lays flat improve was sitting up in addition to bilateral lower extremity swelling. She denies increasing cough sputum production. No chest pain. No fevers or chills. She was found to be in atrial fibrillation with rapid ventricular response in the emergency room. No prior history of AFib. She had a prior history of massive GI bleeding 30 years ago. During my interview patient was in respiratory distress. Speaking in 3 to 4 war sentence. She was requiring 3 1/2 L of nasal oxygen to keep her saturation and early 90s. She could not tolerate Rocha catheter placed in the ER so it was removed. She refuses BiPAP. Hospital course: Ms. Santoyo is a 71 year old female admitted for A Fib with a rapid ventricular response. She was treated with Cardizem drip and anticoagulation. Cardiology consult was called, patient was started with Eliquis. Hospitalization has been complicated by JANNY. Patient will hold Lasix and lisinopril, her renal function has improved. Her Lasix has been resumed, renal functions remains good. We will continue hold her lisinopril at this point, the decision of restarting may be made by PCP in the future. Patient was seen and examined. She is awake alert, oriented 3. Denies chest pain or shortness of breath. Still A. fib, rate is controlled. Vitals are stable. Leg swelling has improved significantly. Patient with discharge home with Soniya, with dose recommended by cardiology. She will follow up with PCP and cardiology as outpatient. - Time Spent with Patient Total time spent providing and/or coordinating discharge services: 40 minutes Greater than 30 minutes - Constitutional Vitals: Temp Pulse Resp BP Pulse Ox 98.0 F 107 16 145/94 96 10/07/16 07:14 10/07/16 08:00 10/07/16 10:16 10/07/16 10:16 10/07/16 10:16 General appearance: Present: A&O X 3, pleasant, no acute distress, answers questions appropriately - Head Head exam: Present: atraumatic, normocephalic - Eye Eye exam: Present: PERRL, conjuntiva pink, sclera anicteric Pupils: Present: PERRL - Neck Neck exam general surgery: Present: supple, trachea midline. Absent: lymphadenopathy - Respiratory Respiratory exam: Present: CTAB. Absent: accessory muscle use, rales, rhonchi, wheezes - Cardiovascular Cardiovascular exam: Present: irregular rhythm, +S1, +S2. Absent: diastolic murmur, gallop, rubs, systolic murmur - GI/Abdominal GI/Abdominal exam: Present: normal bowel sounds, soft, no peritoneal signs. Absent: distended, tenderness - Extremities Exam Extremities exam: Present: warm, radial pulses palpable and symetrical. Absent : calf tenderness, cyanotic, pedal edema - Neurological Exam Neurological exam: Present: CN II-XII intact, oriented X3, no focal deficits. Absent: pronater drift, facial droop, speech deficit - Skin Skin exam: Present: dry, intact - VTE Documentation of Mechanical Device: Intermittent pneumatic compression device
[2016-10-07] MEDS: *HR* OxyCODONE/APAP 10/325 TABLET PO PRN (12:54)
== END 2016-10-07 16:03 | disposition home or self-care (01) | DRG 291 ==
LOC: EMEROO 09:40 → SUATTDRO 11:56 → ICNU 11:56 → 2NNU 10-04 10:06
PROVIDERS: ADMIT Hospitalist; ATTEND Internal Medicine

== ENCOUNTER 2016-11-13 13:59 | Inpatient (IN) ==
--- NOTE | 2016-11-13 14:02 | Emergency Department Note ---
Disposition Clinical Impression: Chest pain, CHF exacerbation Disposition: Admitted As Inpatient General Adult HPI - General Chief complaint: ED Chest Pain Stated complaint: aaron/cp Time Seen by Provider: 11/13/16 14:00 - Related Data Home Medications Medication Instructions Recorded Confirmed Allopurinol [Zyloprim 100 MG] 100 mg PO DAILY 11/03/15 11/13/16 Atenolol [Tenormin] 50 mg PO BID 11/03/15 11/13/16 Atorvastatin [Lipitor] 10 mg PO HS 11/03/15 11/13/16 Cholecalciferol (D-3) [Vitamin D] 5,000 unit PO DAILY 11/03/15 11/13/16 Clopidogrel [Plavix] 75 mg PO DAILY 11/03/15 11/13/16 Furosemide [Lasix] 80 mg PO DAILY 11/03/15 11/13/16 Gabapentin [Neurontin] 300 mg PO TID 11/03/15 11/13/16 Nitroglycerin [Nitrostat] 0.4 mg SL AD PRN 11/03/15 11/13/16 OxyCODONE/APAP 10/325 [Percocet 1 tab PO Q4-6H PRN 11/03/15 11/13/16 10/325 MG] Potassium Chloride [K-Tab ER] 20 meq PO TID 11/03/15 11/13/16 Albuterol Sulfate [Proair Hfa] 2 puff IH Q4HR PRN 10/03/16 11/13/16 FLUoxetine HCl [Prozac] 20 mg PO DAILY 10/03/16 11/13/16 Oxygen 2 l .ROUTE AD 10/03/16 11/13/16 Apixaban [Eliquis] 5 mg PO BID 11/13/16 11/13/16 Ranitidine HCl [Heartburn Relief] 150 mg PO HS 11/13/16 11/13/16 Previous Rx's Medication Instructions Recorded Levothyroxine [Synthroid] 112 mcg PO DAILY@0630 #30 tablet 10/07/16 Allergies Allergy/AdvReac Type Severity Reaction Status Date / Time aspirin Allergy Anaphylaxis Verified 10/03/16 09:58 azithromycin Allergy Anaphylaxis Verified 10/03/16 09:58 cephalexin Allergy Anaphylaxis Verified 10/03/16 09:58 clonidine Allergy Anaphylaxis Verified 10/03/16 09:58 Influenza Virus Vaccines Allergy Anaphylaxis Verified 10/03/16 09:58 iodine Allergy Anaphylaxis Verified 10/03/16 09:58 latex Allergy Anaphylaxis Verified 10/03/16 09:58 levofloxacin [From Levaquin] Allergy Anaphylaxis Verified 10/03/16 09:58 nadolol Allergy Anaphylaxis Verified 10/03/16 09:58 nifedipine Allergy Anaphylaxis Verified 10/03/16 09:58 Penicillins Allergy Hives Verified 11/03/15 15:04 Pneumococcal Vaccine Allergy Anaphylaxis Verified 10/03/16 09:58 Sulfa (Sulfonamide Allergy Hives Verified 11/03/15 15:04 Antibiotics) Past Medical History - Past Medical History Medical history: Reports: cancer, CHF, COPD, hypertension, renal disease, other Surgical history: Reports: breast surgery, cholecystectomy, RON/BSO, thyroidectomy - Social History Smoking Status: Never smoker Smokeless Tobacco Status: No Alcohol use: Reports: none Drug use: Reports: none Course Vital Signs Temperature 98.3 F 11/13/16 14:00 Pulse Rate 113 11/13/16 14:00 Respiratory Rate 20 11/13/16 14:00 Blood Pressure 156/109 11/13/16 14:00 O2 Sat by Pulse Oximetry 98 11/13/16 14:00 Temperature 98.1 F 11/14/16 07:19 Pulse Rate 100 11/14/16 07:19 Respiratory Rate 14 11/14/16 07:19 Blood Pressure 147/84 11/14/16 07:19 O2 Sat by Pulse Oximetry 94 11/14/16 07:19 Oxygen Delivery Oxygen Delivery Nasal Cannula Medical Decision Making - Lab Data Result diagrams: 11/14/16 03:32 11/14/16 03:32 Lab Results 11/13/16 11/13/16 11/13/16 Range/Units 15:50 15:50 15:50 WBC 9.2 (4.3-11.1) K/mcL RBC 4.66 (3.82-4.97) M/mcL Hgb 14.0 (11.5-15.4) g/dL Hct 43.4 (35.3-44.9) % MCV 93.1 (83.0-100.0) fL MCH 30.0 (28.0-33.3) pg MCHC 32.3 (31.6-35.5) g/dL RDW 14.3 (11.5-14.5) % Plt Count 287 (140-400) K/mcL MPV 9.9 (9.4-12.4) fL Immature Gran % 0.3 (0-4) % Seg Neutrophils % 81.4 % Lymphocytes % 11.8 % Monocytes % 6.2 % Eosinophils % 0.1 % Basophils % 0.2 % Neutrophils # 7.5 (1.6-8.9) K/mcL Lymphocytes # 1.1 (0.6-4.6) K/mcL Monocytes # 0.6 (0.0-1.3) K/mcL Eosinophils # 0.0 (0.0-0.6) K/mcL Basophils # 0.0 (0.0-0.2) K/mcL Sodium 143 (136-145) mEq/L Potassium 3.2 L (3.5-4.5) mEq/L Chloride 95 L (98-109) mEq/L Carbon Dioxide 33 H (19-29) mEq/L BUN 22 H (7-20) mg/dL Creatinine 0.91 (0.57-1.11) mg/dL Est GFR ( Amer) > 60 (> 60) Est GFR (Non-Af Amer) > 60 (> 60) BUN/Creatinine Ratio 24 (6-26) Glucose 121 H (70-99) mg/dL Calculated Osmolality 301 H (280-300) Calcium 9.8 (8.6-10.8) mg/dL Troponin I 0.02 (0-0.03) ng/mL B-Natriuretic Peptide (0-100) pg/mL 11/13/16 Range/Units 15:50 WBC (4.3-11.1) K/mcL RBC (3.82-4.97) M/mcL Hgb (11.5-15.4) g/dL Hct (35.3-44.9) % MCV (83.0-100.0) fL MCH (28.0-33.3) pg MCHC (31.6-35.5) g/dL RDW (11.5-14.5) % Plt Count (140-400) K/mcL MPV (9.4-12.4) fL Immature Gran % (0-4) % Seg Neutrophils % % Lymphocytes % % Monocytes % % Eosinophils % % Basophils % % Neutrophils # (1.6-8.9) K/mcL Lymphocytes # (0.6-4.6) K/mcL Monocytes # (0.0-1.3) K/mcL Eosinophils # (0.0-0.6) K/mcL Basophils # (0.0-0.2) K/mcL Sodium (136-145) mEq/L Potassium (3.5-4.5) mEq/L Chloride (98-109) mEq/L Carbon Dioxide (19-29) mEq/L BUN (7-20) mg/dL Creatinine (0.57-1.11) mg/dL Est GFR ( Amer) (> 60) Est GFR (Non-Af Amer) (> 60) BUN/Creatinine Ratio (6-26) Glucose (70-99) mg/dL Calculated Osmolality (280-300) Calcium (8.6-10.8) mg/dL Troponin I (0-0.03) ng/mL B-Natriuretic Peptide 727 H (0-100) pg/mL Attestation Statement - Attestation Attestation: I examined this patient and my medical decision-making was reviewed with the OSTEOPATHIC NEUROLOGIST/PA/Advanced Practice Nurse/Resident Physician. I agree with the documented findings, disposition and treatment plan as described except to the extent set forth below. Face to face time provided in conjunction with the resident physician Dr. Landin Patient presents by EMS. She has a history of oxygen-dependent COPD and atrial fibrillation. She complains of dyspnea and "burning" in her chest. She appears mildly dyspneic on exam.
[2016-11-13] MEDS ORDERED: 0.9 % Sodium Chloride 500 ML IVC ONE (14:06)
[2016-11-13] MEDS ORDERED: GI Cocktail 40 ML EACH PO ONE ×2 (14:28→21:52)
--- NOTE | 2016-11-13 15:46 | Emergency Department Note ---
Disposition Clinical Impression: Chest pain Qualifiers: Chest pain type: unspecified Qualified Code(s): R07.9 - Chest pain, unspecified CHF exacerbation Qualifiers: Congestive heart failure type: unspecified congestive heart failure type Qualified Code(s): I50.9 - Heart failure, unspecified Disposition: Admitted As Inpatient Forms: ED Satisfaction Letter Chest Pain HPI - General Chief Complaint: ED Chest Pain Stated Complaint: aaron/cp Time Seen by Provider: 11/13/16 14:00 Source: patient, EMS Limitations: no limitations Vital Signs Reviewed: Yes Nursing Notes Reviewed: Yes - History of Present Illness HPI Narrative: Patient brought by squad for evaluation of chest pain. Chest pain started earlier today. Described as a burning in the center of her chest. Patient states that she intermittently gets this pain and it is usually worse at night. Patient states his pain is similar in pain to previous reflux problems she has had. This pain has kept her from taking all of her home pain medications except Eliquis. Patient states that the burning discomfort is kept her from taking the rest of her pills. Patient is on multiple medications for A. fib as well as CHF. Will give the patient had GI cocktail as well as further evaluate her chest pain with labs and a chest x-ray and EKG. Severity scale (1-10): 2 - Related Data Home Medications Medication Instructions Recorded Confirmed Allopurinol [Zyloprim 100 MG] 100 mg PO DAILY 11/03/15 10/03/16 Atenolol [Tenormin] 50 mg PO BID 11/03/15 10/03/16 Atorvastatin [Lipitor] 10 mg PO HS 11/03/15 10/03/16 Cholecalciferol (D-3) [Vitamin D] 2,000 unit PO DAILY 11/03/15 10/03/16 Clopidogrel [Plavix] 75 mg PO DAILY 11/03/15 10/03/16 Furosemide [Lasix] 80 mg PO DAILY 11/03/15 10/03/16 Gabapentin [Neurontin] 300 mg PO TID 11/03/15 10/03/16 Nitroglycerin [Nitrostat] 0.4 mg SL AD PRN 11/03/15 10/03/16 Omeprazole [PriLOSEC] 20 mg PO DAILY 11/03/15 10/03/16 OxyCODONE/APAP 10/325 [Percocet 1 tab PO Q4-6H PRN 11/03/15 10/03/16 10/325 MG] Potassium Chloride [K-Tab ER] 20 meq PO TID 11/03/15 10/03/16 Albuterol Sulfate [Proair Hfa] 2 puff IH Q4HR PRN 10/03/16 10/03/16 FLUoxetine HCl [Prozac] 20 mg PO DAILY 10/03/16 10/03/16 Oxygen 2 l .ROUTE AD 10/03/16 10/03/16 Previous Rx's Medication Instructions Recorded Diltiazem HCl [Cardizem Cd] 360 mg PO DAILY #30 cap.er.24h 11/03/15 Apixaban [Eliquis] 5 mg PO BID #60 tablet 10/06/16 Apixaban [Eliquis] 5 mg PO BID tablet 10/07/16 Diltiazem CD (24hr) [Cardizem CD] 180 mg PO BID #60 cap.er.24h 10/07/16 Levothyroxine [Synthroid] 112 mcg PO DAILY@0630 #30 tablet 10/07/16 Allergies Allergy/AdvReac Type Severity Reaction Status Date / Time aspirin Allergy Anaphylaxis Verified 10/03/16 09:58 azithromycin Allergy Anaphylaxis Verified 10/03/16 09:58 cephalexin Allergy Anaphylaxis Verified 10/03/16 09:58 clonidine Allergy Anaphylaxis Verified 10/03/16 09:58 Influenza Virus Vaccines Allergy Anaphylaxis Verified 10/03/16 09:58 iodine Allergy Anaphylaxis Verified 10/03/16 09:58 latex Allergy Anaphylaxis Verified 10/03/16 09:58 levofloxacin [From Levaquin] Allergy Anaphylaxis Verified 10/03/16 09:58 nadolol Allergy Anaphylaxis Verified 10/03/16 09:58 nifedipine Allergy Anaphylaxis Verified 10/03/16 09:58 Penicillins Allergy Hives Verified 11/03/15 15:04 Pneumococcal Vaccine Allergy Anaphylaxis Verified 10/03/16 09:58 Sulfa (Sulfonamide Allergy Hives Verified 11/03/15 15:04 Antibiotics) Review of Systems: CONSTITUTIONAL: No weight loss, fever, chills, weakness or fatigue. HEENT: Eyes: No visual changes. Ears, Nose, Throat: No hearing loss, difficulty talking or unable to swallow. SKIN: No rash or itching. CARDIOVASCULAR: Chest pain RESPIRATORY: Dyspnea, decreased exercise capacity, increased O2 demand GASTROINTESTINAL: Nausea No anorexia, vomiting or diarrhea. No abdominal pain or blood. GENITOURINARY: No burning on urination or hematuria. NEUROLOGICAL: No headache, dizziness, syncope, paralysis, ataxia, numbness or tingling in the extremities. No change in bowel or bladder control. MUSCULOSKELETAL: No muscle pain, back pain, joint pain or stiffness. Chest Pain PMH - Past Medical History Medical history: Reports: cancer, CHF, COPD, hypertension, renal disease, other Surgical history: Reports: breast surgery, cholecystectomy, RON/BSO, thyroidectomy - Social History Smoking Status: Never smoker Alcohol use: Reports: none Drug use: Reports: none Physical Exam - General Limitations: no limitations Course - Reevaluation(s) Reevaluation #1: During the patient's stay chest x-ray is concerning for pulmonary vascular congestion and CHF. The setting of increasing swelling of lower extremities as well as increasing oxygen demands this fits with CHF exacerbation. Patient's chest pain is much more concerning for atypical chest pain and possible gastritis. Patient received a GI cocktail of mild relief however symptoms return and the patient was given Protonix. Patient continues to have burning sensation in the middle of her chest. Discussed the possibility of going home with patient, she lives alone and is concerned that if she goes home and is unable to take her pills she will have a hard time coming back to the hospital. At this time the patient will be brought in for chest pain and acute exacerbation CHF. - Consultations Consultation #1: Pt accepted by [facility]. Pt accepted for further observation. Vital Signs Temperature 98.3 F 11/13/16 14:00 Pulse Rate 113 11/13/16 14:00 Respiratory Rate 20 11/13/16 14:00 Blood Pressure 156/109 11/13/16 14:00 O2 Sat by Pulse Oximetry 98 11/13/16 14:00 Temperature 98.3 F 11/13/16 14:00 Pulse Rate 113 11/13/16 14:00 Respiratory Rate 20 11/13/16 14:00 Blood Pressure 156/109 11/13/16 14:00 O2 Sat by Pulse Oximetry 98 11/13/16 14:12 Oxygen Delivery Oxygen Delivery Nasal Cannula Chest Pain - Medical Records Medical records reviewed: Yes I reviewed the patient's medical records. - Lab Data Lab results reviewed: Yes I reviewed the patient's lab results. Result diagrams: 11/13/16 15:50 11/13/16 15:50 Lab Results 11/13/16 11/13/16 11/13/16 Range/Units 15:50 15:50 15:50 WBC 9.2 (4.3-11.1) K/mcL RBC 4.66 (3.82-4.97) M/mcL Hgb 14.0 (11.5-15.4) g/dL Hct 43.4 (35.3-44.9) % MCV 93.1 (83.0-100.0) fL MCH 30.0 (28.0-33.3) pg MCHC 32.3 (31.6-35.5) g/dL RDW 14.3 (11.5-14.5) % Plt Count 287 (140-400) K/mcL MPV 9.9 (9.4-12.4) fL Immature Gran % 0.3 (0-4) % Seg Neutrophils % 81.4 % Lymphocytes % 11.8 % Monocytes % 6.2 % Eosinophils % 0.1 % Basophils % 0.2 % Neutrophils # 7.5 (1.6-8.9) K/mcL Lymphocytes # 1.1 (0.6-4.6) K/mcL Monocytes # 0.6 (0.0-1.3) K/mcL Eosinophils # 0.0 (0.0-0.6) K/mcL Basophils # 0.0 (0.0-0.2) K/mcL Sodium 143 (136-145) mEq/L Potassium 3.2 L (3.5-4.5) mEq/L Chloride 95 L (98-109) mEq/L Carbon Dioxide 33 H (19-29) mEq/L BUN 22 H (7-20) mg/dL Creatinine 0.91 (0.57-1.11) mg/dL Est GFR ( Amer) > 60 (> 60) Est GFR (Non-Af Amer) > 60 (> 60) BUN/Creatinine Ratio 24 (6-26) Glucose 121 H (70-99) mg/dL Calculated Osmolality 301 H (280-300) Calcium 9.8 (8.6-10.8) mg/dL Troponin I 0.02 (0-0.03) ng/mL - Radiology Data Radiology results reviewed: Yes I reviewed the patient's radiology results. - EKG Data EKG attestation: Yes I reviewed and interpreted this EKG. EKG results narrative: Patient has atrial fibrillation with a rate of 120. QRS 96. QTC 357. Patient has no significant ST elevations or depressions. EKG similar to previous EKG of 10/03/16.
[2016-11-13 15:57] LABS: Basophils % 0.2 %; Eosinophils % 0.1 %; Hematocrit 43.4 % (35.3-44.9); Immature Granulocytes % 0.3 % (0-4); Lymphocytes # 1.1 K/mcL (0.6-4.6); Lymphocytes % 11.8 %; Mean Corpuscular HGB Conc 32.3 g/dL (31.6-35.5); Mean Corpuscular Volume 93.1 fL (83.0-100.0); Mean Platelet Volume 9.9 fL (9.4-12.4); Monocytes # 0.6 K/mcL (0.0-1.3); Monocytes % 6.2 %; Neutrophils # 7.5 K/mcL (1.6-8.9); Platelet Count 287 K/mcL (140-400); Red Blood Count 4.66 M/mcL (3.82-4.97); Red Cell Distribution Width 14.3 % (11.5-14.5); Segmented Neutrophils % 81.4 %
[2016-11-13 16:12] LABS: BUN/Creatinine Ratio 24 (6-26); Blood Urea Nitrogen 22 mg/dL (7-20); Calcium 9.8 mg/dL (8.6-10.8); Carbon Dioxide 33 mEq/L (19-29); Chloride 95 mEq/L (98-109); Glucose 121 mg/dL (70-99); Osmolality,Calculated 301 (280-300); Potassium 3.2 mEq/L (3.5-4.5); Sodium 143 mEq/L (136-145); eGFR For African Americans > 60 (> 60); eGFR For Non-African Americans > 60 (> 60)
[2016-11-13] MEDS ORDERED: Pantoprazole 40 MG VIAL IVP ONE (16:37)
[2016-11-13] MEDS ORDERED: *HR* OxyCODONE/APAP 5/325 TABLET PO ONE (16:56)
[2016-11-13] MEDS ORDERED: Sucralfate 1 GM TABLET PO STA (17:09)
[2016-11-13] MEDS ORDERED: Furosemide 40 MG/4 ML VIAL IVP STA (17:14)
[2016-11-13] MEDS ORDERED: Ipratropium/Albuterol Neb 3 ML IH STA (17:57)
[2016-11-13] MEDS ORDERED: Ondansetron 4 MG/2 ML VIAL IVP PRN (20:27)
[2016-11-13] MEDS ORDERED: Naloxone 0.4 MG/ML INJ IVP PRN (20:27)
--- NOTE | 2016-11-13 21:15 | Internal Med History&Physical ---
Date of Encounter: 11/13/16 Time of Encounter: 21:04 Assessment and Plan (1) CHF exacerbation Current visit: Yes Status: Acute 1 patient has been experiencing increasing shortness of breath, edema, increased oxygen demand. Chest x-ray with pulmonary vascular congestion. Last echo was last month showed EF of 60% We will continue with oxygen and titrate as needed to maintain SPO2 greater than 92% 2 continue with Lasix IV 40 mg twice a day 3 fluid restriction 4 low sodium diet 5 monitor intake and output daily weight Qualifiers: Congestive heart failure type: diastolic Qualified Code(s): I50.33 - Acute on chronic diastolic (congestive) heart failure (2) Chest pain Current visit: Yes Status: Acute 1 patient has been experiencing epigastric as well as chest pain. Unsure if this is cardiac, suspect more gastric reflux continue to trend troponins. 2 nitroglycerin 3 continue with aspirin Plavix and statin 4 continuous cardiac monitoring Qualifiers: Chest pain type: unspecified Qualified Code(s): R07.9 - Chest pain, unspecified (3) GERD (gastroesophageal reflux disease) Current visit: Yes Status: Chronic 1 patient has been experiencing epigastric burning that has been going on for approximately 1 month over the past week she states the burning has become more intense and she is not able take her medications. She states that the burning is now radiating up into her chest. She was given Protonix as well as GI cocktail which did provide some relief We will continue with protonix BID and give another dose GI cocktail, reevaluate in am . Qualifiers: Esophagitis presence: esophagitis presence not specified Qualified Code(s) : K21.9 - Gastro-esophageal reflux disease without esophagitis (4) Atrial fibrillation Current visit: Yes Status: Chronic 1 patient has chronic atrial fibrillation we will continue with a course Qualifiers: Atrial fibrillation type: chronic Qualified Code(s): I48.2 - Chronic atrial fibrillation (5) DVT prophylaxis Current visit: No Status: Acute Patient is on [facility] Internal Medicine - H&P: HPI Chief complaint: Epigastric burning Admitted From: Emergency Dept Plans for Post Hospital Care: Home History of present illness: Ms. Santoyo is a 71 year old female past medical history of breast cancer congestive heart failure COPD oxygen-dependent hypertension renal disease anxiety hypothyroid area going to the patient she has been under significant amount of stress in the process of moving from her home. She has been experiencing intermittent epigastric pain that rises up into her chest which she describes as burning. She has had worsening gastric reflux over the past month however this morning, the patient states she was unable to breathe. Due to the gastric reflux patient states she has not been taking her home medications except for her Eliquis. She has been experiencing shortness of breath and has increased her oxygen flow. She is also noticed increased swelling to her lower extremities She presented to the ER with the above complaints. According to ER records lab work was obtained which was unremarkable troponin was 0.02 leukocytosis vital signs revealed tachycardia 113 respiratory rate 20 blood pressure 156/ 109 SPO2 is 98%. Chest x-ray did show some vascular congestion EKG atrial fibrillation with no ST T wave abnormalities. Patient received GI cocktail which relieved her symptoms somewhat however pain return and she was given Protonix. She continued to complain of burning sensation inepigastric radiating to chest She has been admitted for further workup and evaluation. Presently patient continues to complain of epigastric pain that radiates to middle of her chest. Chest is nontender epigastric region is tender to palpation. Lung sounds are clear heart sounds are irregular S1-S2 no rubs click gallops or murmurs noted. She does have +1 pitting edema to lower extremity is bilaterally she is hemodynamically stable at this timeI reviewed this case with Dr Graf who agrees with plan Past Med Surg Social Fam HX - Past Medical History Medical history: cancer, CHF, COPD, hypertension, renal disease, other - Past Surgical History Surgical History: breast surgery, cholecystectomy, RON/BSO, thyroidectomy - Social History Smoking Status: Never smoker Smokeless Tobacco Status: No Alcohol use: none Drug use: none - Family History Mother Living Status: Father Living Status: Still Living Internal Medicine - H&P: Meds Allopurinol [Zyloprim 100 MG] 100 mg PO DAILY 11/03/15 [History] Atenolol [Tenormin] 50 mg PO BID 11/03/15 [History] Atorvastatin [Lipitor] 10 mg PO HS 11/03/15 [History] Cholecalciferol (D-3) [Vitamin D] 2,000 unit PO DAILY 11/03/15 [History] Clopidogrel [Plavix] 75 mg PO DAILY 11/03/15 [History] Furosemide [Lasix] 80 mg PO DAILY 11/03/15 [History] Gabapentin [Neurontin] 300 mg PO TID 11/03/15 [History] Nitroglycerin [Nitrostat] 0.4 mg SL AD PRN 11/03/15 [History] OxyCODONE/APAP 10/325 [Percocet 10/325 MG] 1 tab PO Q4-6H PRN 11/03/15 [History] Potassium Chloride [K-Tab ER] 20 meq PO TID 11/03/15 [History] Albuterol Sulfate [Proair Hfa] 2 puff IH Q4HR PRN 10/03/16 [History] FLUoxetine HCl [Prozac] 20 mg PO DAILY 10/03/16 [History] Oxygen 2 l .ROUTE AD 10/03/16 [History] Levothyroxine [Synthroid] 112 mcg PO DAILY@0630 #30 tablet 10/07/16 [Rx] Apixaban [Eliquis] 5 mg PO BID 11/13/16 [History] Ranitidine HCl [Heartburn Relief] 150 mg PO HS 11/13/16 [History] Allergies aspirin Allergy (Verified 10/03/16 09:58) Anaphylaxis azithromycin Allergy (Verified 10/03/16 09:58) Anaphylaxis cephalexin Allergy (Verified 10/03/16 09:58) Anaphylaxis clonidine Allergy (Verified 10/03/16 09:58) Anaphylaxis Influenza Virus Vaccines Allergy (Verified 10/03/16 09:58) Anaphylaxis iodine Allergy (Verified 10/03/16 09:58) Anaphylaxis latex Allergy (Verified 10/03/16 09:58) Anaphylaxis levofloxacin [From Levaquin] Allergy (Verified 10/03/16 09:58) Anaphylaxis nadolol Allergy (Verified 10/03/16 09:58) Anaphylaxis nifedipine Allergy (Verified 10/03/16 09:58) Anaphylaxis Penicillins Allergy (Verified 11/03/15 15:04) Hives Pneumococcal Vaccine Allergy (Verified 10/03/16 09:58) Anaphylaxis Sulfa (Sulfonamide Antibiotics) Allergy (Verified 11/03/15 15:04) Hives All Systems PM: A 10-system review of systems was performed and is negative for pertinent findings except as documented above in the HPI. - Constitutional Constitutional: no chills, no fever(s), no night sweats - EENT Eyes: no change in vision, no discharge, no pain, no photophobia Nose, mouth and throat: no dysphagia, no nasal discharge, no neck pain, no sore throat - Cardiovascular Cardiovascular ROS IM: chest pain, dyspnea, edema - Respiratory Respiratory: dyspnea on exertion - Gastrointestinal Gastrointestinal: abdominal pain, nausea - Genitourinary Genitourinary: no change in urinary stream, no dysuria, no flank pain, no hematuria - Musculoskeletal Musculoskeletal ROS IM: no numbness, no tingling - Integumentary Integumentary IM: no rash, no unusual bruising - Neurological Neurological ROS: no confusion, no convulsions, no focal weakness, no numbness, no tingling, no tremor(s) - Hematologic/Lymphatic Hematologic/Lymphatic: no easy bruising - Constitutional Vitals: Temp Pulse Resp BP Pulse Ox 98.1 F 74 18 162/92 98 11/13/16 18:56 11/13/16 18:56 11/13/16 18:56 11/13/16 18:56 11/13/16 18:56 General appearance: Present: A&O X 3, answers questions appropriately - Head Head exam: Present: atraumatic, normocephalic - Eye Eye exam: Present: PERRL, conjuntiva pink, sclera anicteric Pupils: Present: PERRL - Neck Neck exam general surgery: Present: supple, trachea midline. Absent: lymphadenopathy - Respiratory Respiratory exam: Present: CTAB. Absent: accessory muscle use, rales, rhonchi, wheezes - Cardiovascular Cardiovascular exam: Present: RRR, +S1, +S2. Absent: diastolic murmur, gallop, rubs, systolic murmur - GI/Abdominal GI/Abdominal exam: Present: normal bowel sounds, soft, tenderness, no peritoneal signs. Absent: distended - Extremities Exam Extremities exam: Present: pedal edema - Neurological Exam Neurological exam: Present: CN II-XII intact, oriented X3, no focal deficits. Absent: pronater drift, facial droop, speech deficit - Skin Skin exam: Present: dry, intact Internal Med - H&P Results - Labs CBC & Chem 7: 11/13/16 15:50 11/13/16 15:50 - EKG Data Prior EKG available for review: yes When compared to previous EKG: there is no significant change EKG comments: 11/13/16 21:17 Atrial fibrillation - Diagnostic Studies Other Images Additional comments: Chest X-Ray 11/13/16 14:06 IMPRESSION: 1. Pulmonary vascular congestion with questionable perihilar edema. 2. Bibasilar atelectasis and/or pneumonia. Bilateral perihilar atelectasis. 3. Suspected bilateral pleural effusions. D/ / Lawrence Terrazas MD / Lawrence Terrazas MD Interpreting Provider: Lawrence Terrazas MD
[2016-11-13] MEDS ORDERED: Nitroglycerin 0.4 MG TAB.SUBL SL PRN (22:33)
[2016-11-13] MEDS: Furosemide 40 MG/4 ML VIAL IVP SCH (23:16)
[2016-11-13] MEDS: APIXABAN 5 MG TABLET PO SCH (23:16)
[2016-11-14] MEDS: *HR* OxyCODONE/APAP 10/325 TABLET PO PRN ×3 (02:21→23:22)
[2016-11-14 03:44] LABS: Basophils % 0.5 %; Eosinophils % 0.2 %; Hematocrit 44.1 % (35.3-44.9); Immature Granulocytes % 0.2 % (0-4); Lymphocytes # 1.3 K/mcL (0.6-4.6); Lymphocytes % 14.4 %; Mean Corpuscular HGB Conc 31.7 g/dL (31.6-35.5); Mean Corpuscular Hemoglobin 29.5 pg (28.0-33.3); Mean Corpuscular Volume 92.8 fL (83.0-100.0); Mean Platelet Volume 9.9 fL (9.4-12.4); Monocytes # 0.8 K/mcL (0.0-1.3); Monocytes % 8.7 %; Neutrophils # 6.7 K/mcL (1.6-8.9); Platelet Count 241 K/mcL (140-400); Red Blood Count 4.75 M/mcL (3.82-4.97); Red Cell Distribution Width 14.2 % (11.5-14.5)
[2016-11-14 04:02] LABS: BUN/Creatinine Ratio 23 (6-26); Blood Urea Nitrogen 23 mg/dL (7-20); Calcium 9.6 mg/dL (8.6-10.8); Carbon Dioxide 35 mEq/L (19-29); Chloride 95 mEq/L (98-109); Glucose 115 mg/dL (70-99); Osmolality,Calculated 299 (280-300); Potassium 3.3 mEq/L (3.5-4.5); Sodium 142 mEq/L (136-145); eGFR For African Americans > 60 (> 60); eGFR For Non-African Americans 55 (> 60)
[2016-11-14] MEDS: Pantoprazole 40 MG VIAL IVP SCH ×2 (06:32→17:43)
[2016-11-14] MEDS: Gabapentin 300 MG CAPSULE PO SCH ×3 (08:07→22:36)
[2016-11-14] MEDS: Cholecalciferol (D-3) 1,000 UNIT TABLET PO SCH (08:07)
[2016-11-14] MEDS: APIXABAN 5 MG TABLET PO SCH ×2 (08:07→22:36)
[2016-11-14] MEDS: Furosemide 40 MG/4 ML VIAL IVP SCH ×2 (08:10→22:35)
--- NOTE | 2016-11-14 18:04 | Internal Med Progress Note ---
Date of Encounter: 11/14/16 Time of Encounter: 17:00 - Assessment and plan (1) Pneumonia Current Visit: Yes Status: Acute Assessment and plan: Chest x-ray consistent with fluid overload with possible pneumonia. Patient has had a harsh, hacking productive cough with thick green sputum. We will treat for pneumonia. She was admitted within the last couple months. She has numerous drug allergies and intolerances. She has listed as an anaphylactic reaction to the following antibiotics: Azithromycin, cephalexin, levofloxacin. She has a documented allergy of hives to the following antibiotics: Penicillins and sulfa. It does not appear as if she has a documented allergy to tetracyclines, will initiate Doxy and monitor her very closely. ITS Impressions Chest X-Ray 11/13/16 14:06 IMPRESSION: 1. Pulmonary vascular congestion with questionable perihilar edema. 2. Bibasilar atelectasis and/or pneumonia. Bilateral perihilar atelectasis. 3. Suspected bilateral pleural effusions. D/ / Lawrence Terrazas MD / Lawrence Terrazas MD Interpreting Provider: Lawrence Terrazas MD (2) DVT prophylaxis Current Visit: No Status: Acute Assessment and plan: on Eliquis (3) CHF (congestive heart failure) Current Visit: No Status: Acute Assessment and plan: Acute on chronic diastolic heart failure. Echocardiogram from September of this year with preserved ejection fraction of 60% and indeterminate diastolic function. She is on furosemide at home. Diuresing with IV furosemide. Mild fluid overload noted on chest x-ray. Patient currently tolerating room air, we will continues to diurese and observe. Qualifiers: Congestive heart failure type: diastolic Congestive heart failure chronicity: acute on chronic Qualified Code(s): I50.33 - Acute on chronic diastolic (congestive) heart failure (4) Hypothyroidism Current Visit: No Status: Chronic Assessment and plan: Thyroid studies reviewed in September 2016, with TSH low but free T4 and total T3 normal. follow-up outpatient Qualifiers: Hypothyroidism type: acquired Qualified Code(s): E03.9 - Hypothyroidism, unspecified (5) Chest pain Current Visit: Yes Status: Acute Assessment and plan: Patient stating her chest pain is controlled as long as she stays on top of taking her Carafate. Troponin negative 3. Low suspicion for acute coronary syndrome. Cardiology on board to assist with her cardiac medications given that her atrial fibrillation rate is uncontrolled. Qualifiers: Chest pain type: unspecified Qualified Code(s): R07.9 - Chest pain, unspecified (6) GERD (gastroesophageal reflux disease) Current Visit: Yes Status: Chronic Assessment and plan: Symptoms currently controlled with Carafate. If symptoms return, we will consider possible EGD but possibly can be done on an outpatient basis. Qualifiers: Esophagitis presence: esophagitis presence not specified Qualified Code(s) : K21.9 - Gastro-esophageal reflux disease without esophagitis (7) Atrial fibrillation Current Visit: Yes Status: Chronic Assessment and plan: Rate uncontrolled. In review of her chart, patient stopped taking her Cardizem. She told me that it made her feel weird but she was unable to elaborate. She stated that she has had so many adverse reactions to medications that she does not remember the specific reactions. She refuses to take Cardizem. Heart rate is been around 100 since admission, she is stable. Appreciate cardiology recommendations on further medications. Continue Eliquis. Of note, she is also listed as being on Plavix although there does not appear to be a reason why she was on Plavix. No CAD history, no history of stents that the patient remembers and not listed in her chart. No history of CVAs. Holding Plavix at this time. Qualifiers: Atrial fibrillation type: chronic Qualified Code(s): I48.2 - Chronic atrial fibrillation - Subjective Interval history: Patient seen and examined. Upon examination, patient complaining of generalized abdominal pain. She states that the potassium supplement she just took immediately made her stomach hurt and she states that she will "hurt until 4 AM." Otherwise, she states she is doing relatively well. She is also concerned about her heart medications. - Constitutional Vitals: Temp Pulse Resp BP Pulse Ox 98.0 F 82 16 126/87 94 11/14/16 14:57 11/14/16 14:57 11/14/16 14:57 11/14/16 14:57 11/14/16 14:57 General appearance: Present: A&O X 3, pleasant, no acute distress, answers questions appropriately - Head Head exam: Present: atraumatic, normocephalic - Eye Eye exam: Present: PERRL, conjuntiva pink, sclera anicteric Pupils: Present: PERRL - Neck Neck exam general surgery: Present: supple, trachea midline. Absent: lymphadenopathy - Respiratory Respiratory exam: Present: decreased breath sounds. Absent: accessory muscle use, rales, respiratory distress, rhonchi, wheezes - Cardiovascular Cardiovascular exam: Present: RRR, +S1, +S2, tachycardia. Absent: diastolic murmur, gallop, rubs, systolic murmur - GI/Abdominal GI/Abdominal exam: Present: normal bowel sounds, soft, no peritoneal signs. Absent: distended, tenderness - Extremities Exam Extremities exam: Present: warm, radial pulses palpable and symetrical. Absent : calf tenderness, cyanotic, pedal edema - Neurological Exam Neurological exam: Present: alert, CN II-XII intact, oriented X3, no focal deficits, strengths equal and symetr throughout. Absent: pronater drift, facial droop, speech deficit - Psychiatric Psychiatric exam: Present: anxious - Expanded Psychiatric Exam Focused psych exam: Present: restlessness - Skin Skin exam: Present: dry, intact, pallor, warm Internal Medicine: Result - Labs CBC & Chem 7: 11/14/16 03:32 11/14/16 03:32 Labs: Short CBC 11/14/16 Range/Units 03:32 WBC 8.9 (4.3-11.1) K/mcL Hgb 14.0 (11.5-15.4) g/dL Hct 44.1 (35.3-44.9) % Plt Count 241 (140-400) K/mcL Neutrophils # 6.7 (1.6-8.9) K/mcL BMP 11/14/16 03:32 Sodium 142 Potassium 3.3 L Chloride 95 L Carbon Dioxide 35 H BUN 23 H Creatinine 0.99 Glucose 115 H Calcium 9.6 Cardiac Enzymes 11/13/16 11/14/16 Range/Units 21:15 03:32 Troponin I 0.03 0.02 (0-0.03) ng/mL Consult Discharge Plan - Plan Referrals: Sharath Sims DO [Primary Care Provider] -
[2016-11-14] MEDS ORDERED: *HR* Metoprolol 5 MG/5 ML VIAL IVP PRN (18:14)
[2016-11-15 05:34] LABS: BUN/Creatinine Ratio 27 (6-26); Blood Urea Nitrogen 26 mg/dL (7-20); Calcium 9.3 mg/dL (8.6-10.8); Carbon Dioxide 32 mEq/L (19-29); Chloride 101 mEq/L (98-109); Glucose 107 mg/dL (70-99); Osmolality,Calculated 303 (280-300); Sodium 144 mEq/L (136-145); eGFR For African Americans > 60 (> 60); eGFR For Non-African Americans 57 (> 60)
[2016-11-15 05:39] LABS: Potassium 4.8 mEq/L (3.5-4.5)
[2016-11-15] MEDS ORDERED: Doxycycline 100 MG in 0.9 % Sodium Chloride Mini Bag 100 ML IVPB SCH (06:00)
[2016-11-15] MEDS: Pantoprazole 40 MG VIAL IVP SCH ×2 (06:20→16:13)
[2016-11-15] MEDS: Furosemide 40 MG/4 ML VIAL IVP SCH ×2 (08:22→21:20)
[2016-11-15] MEDS: Cholecalciferol (D-3) 1,000 UNIT TABLET PO SCH (08:22)
[2016-11-15] MEDS: APIXABAN 5 MG TABLET PO SCH ×2 (08:23→21:19)
[2016-11-15] MEDS: Gabapentin 300 MG CAPSULE PO SCH ×3 (08:23→21:19)
--- NOTE | 2016-11-15 10:52 | Cardiology Consult Note ---
Date of Encounter: 11/15/16 Time of Encounter: 10:51 Assessment and Plan (1) Atrial fibrillation with RVR Current Visit: Yes Status: Acute HR 120s on presentation, currently 90s at bedside. A-Fib diagnosed 09/2016. Was started on Cardizem and Eliquis at that time. Pt reports she has been compliant with Eliquis, but has not been taking her Cardizem due to GI upset. She states GI upset is now resolved with GI cocktail and Protonix and that she is willing to be put back on Cardizem. Resume Cardizem CD 180mg daily. Continue home Atenolol 50mg BID. K was 3.2 on admission, now corrected to 4.8. TSH 09/2016 0.219--recommend addressing per primary team. Echo 09/2016 EF preserved 60%. Resume Cardizem, continue Atenolol, continue Eliquis for anticoagulation. Pt is also on Plavix for unclear reasons--no hx of CVA, CAD or vascular disease. Will stop Plavix. Further discuss with Dr. Jc, anticipate sign off with outpt follow-up. (2) CHF (congestive heart failure) Current Visit: No Status: Acute Echo 09/2016 EF 60%, indeterminate diastolic function. BNP 727, CXR with vascular congestion, suspected bilateral pleural effusions, bibasilar atelectasis and/or PNA. Symptoms of worsening dyspnea, LE edema. Currently on IV Lasix 40mg BID. No output has been recorded. Recommend Strict I/O, daily weights, Na and fluid restriction. Qualifiers: Congestive heart failure type: diastolic Congestive heart failure chronicity: acute on chronic Qualified Code(s): I50.33 - Acute on chronic diastolic (congestive) heart failure Discussion w patient/family: The assessment and plan as outlined above was discussed with the patient and/or family members who expressed understanding and agreement. All questions were answered. Thank you for involving us in the care of your patient. Please call with any questions. I will discuss all the above with Dr. Jc and make changes as necessary. History of Present Illness Consult date: 11/15/16 Requesting physician: Mariam Callaway Consult reason: A-Fib RVR, CHF Chief complaint: epigastric pain, dyspnea History of present illness: Ms. Santoyo is a 71 year old female with PMH of breast cancer, diastolic CHF, COPD oxygen-dependent, hypertension, renal disease, anxiety, hypothyroidism and A- Fib. Pt reports intermittent epigastric pain described as burning. She has had worsening gastric reflux over the past month and yesterday morning she was unable to breathe. Due to the reflux patient states she has not been taking her home medications except for her Eliquis. She has been experiencing shortness of breath and has increased her oxygen flow. She is also noticed increased swelling to her lower extremities. EKG showed A-Fib with RVR, as she has not been taking her Cardizem. HR currently 90s at bedside. Troponin negative. CXR shows vascular congestion, suspected bilateral pleural effusions, bibasilar atelectasis and/or PNA. Recent echo EF preserved. She denies chest pain or palpitations. Past Med Surg Social Fam HX - Past Medical History Medical history: atrial fibrillation, cancer, CHF, COPD, hypertension, renal disease, other - Past Surgical History Surgical History: breast surgery, cholecystectomy, RON/BSO, thyroidectomy - Social History Smoking Status: Never smoker Smokeless Tobacco Status: No Alcohol use: none Drug use: none - Family History Mother Living Status: Father Living Status: Still Living Medications and Allergies Allopurinol [Zyloprim 100 MG] 100 mg PO DAILY 11/03/15 [History] Atenolol [Tenormin] 50 mg PO BID 11/03/15 [History] Atorvastatin [Lipitor] 10 mg PO HS 11/03/15 [History] Cholecalciferol (D-3) [Vitamin D] 5,000 unit PO DAILY 11/03/15 [History] Furosemide [Lasix] 80 mg PO DAILY 11/03/15 [History] Gabapentin [Neurontin] 300 mg PO TID 11/03/15 [History] Nitroglycerin [Nitrostat] 0.4 mg SL AD PRN 11/03/15 [History] OxyCODONE/APAP 10/325 [Percocet 10/325 MG] 1 tab PO Q4-6H PRN 11/03/15 [History] Potassium Chloride [K-Tab ER] 20 meq PO TID 11/03/15 [History] Albuterol Sulfate [Proair Hfa] 2 puff IH Q4HR PRN 10/03/16 [History] FLUoxetine HCl [Prozac] 20 mg PO DAILY 10/03/16 [History] Oxygen 2 l .ROUTE AD 10/03/16 [History] Apixaban [Eliquis] 5 mg PO BID 11/13/16 [History] Ranitidine HCl [Heartburn Relief] 150 mg PO BID 11/13/16 [History] Diltiazem HCl [Diltiazem 24Hr Cd] 360 mg PO DAILY 11/14/16 [History] Levothyroxine [Levothyroxine Sodium] 137 mcg PO DAILY 11/14/16 [History] Omeprazole [PriLOSEC] 20 mg PO DAILY 11/14/16 [History] Allergies aspirin Allergy (Verified 10/03/16 09:58) Anaphylaxis azithromycin Allergy (Verified 10/03/16 09:58) Anaphylaxis cephalexin Allergy (Verified 10/03/16 09:58) Anaphylaxis clonidine Allergy (Verified 10/03/16 09:58) Anaphylaxis Influenza Virus Vaccines Allergy (Verified 10/03/16 09:58) Anaphylaxis iodine Allergy (Verified 10/03/16 09:58) Anaphylaxis latex Allergy (Verified 10/03/16 09:58) Anaphylaxis levofloxacin [From Levaquin] Allergy (Verified 10/03/16 09:58) Anaphylaxis nadolol Allergy (Verified 10/03/16 09:58) Anaphylaxis nifedipine Allergy (Verified 10/03/16 09:58) Anaphylaxis Penicillins Allergy (Verified 11/03/15 15:04) Hives Pneumococcal Vaccine Allergy (Verified 10/03/16 09:58) Anaphylaxis Sulfa (Sulfonamide Antibiotics) Allergy (Verified 11/03/15 15:04) Hives All Systems Review: A 10-system review of systems was performed and is negative for pertinent findings except as documented above in the HPI. - Cardiovascular Cardiovascular: as per HPI, dyspnea at rest, dyspnea on exertion - Respiratory Respiratory: cough, dyspnea Physical Examination Vital Signs, Last 4 Hours Temp Pulse Resp BP Pulse Ox 11/15/16 08:20 96 11/15/16 07:45 97.7 F 83 17 125/83 96 Vital Signs Temp Pulse Resp BP Pulse Ox 11/15/16 08:20 96 11/15/16 07:45 97.7 F 83 17 125/83 96 11/15/16 03:13 97.9 F 81 16 130/79 95 11/14/16 22:59 97.5 F L 109 20 156/102 97 11/14/16 18:52 98.4 F 99 20 136/82 97 11/14/16 14:57 98.0 F 82 16 126/87 94 11/14/16 11:15 97.7 F 117 15 140/82 91 Intake and Output 11/14/16 11/15/16 11/15/16 23:59 07:59 15:59 Intake Total 240 / 240 360 / 360 Balance 240 / 240 360 / 360 Intake: Oral 240 / 240 360 / 360 Other: Meal Dinner Breakfast Percent of Meal Consumed 55% 50% Weight 91.354 kg Patient Weight 11/15/16 23:59 Weight 91.354 kg General: Conversant, No Apparent Distress HEENT: Atraumatic, Normocephaly, Mucus Membranes Moist Neck: No JVD, Normal carotid pulses Cardiac: Other (irregularly irregular) Lungs: Other (diminished) Neuro: Alert and responsive, No focal deficits noted Abdomen: Soft, Non-Tender Skin: No rashes noted on visualized skin Musculoskeletal: No Chest Wall Tenderness Extremities: Other (nonpitting BLE edema) Results 11/14/16 03:32 11/15/16 04:30 Lab Results 11/15/16 04:30 Sodium 144 Potassium 4.8 H D Chloride 101 Carbon Dioxide 32 H BUN 26 H Creatinine 0.96 Glucose 107 H Calcium 9.3 BMP 11/15/16 Range/Units 04:30 Sodium 144 (136-145) mEq/L Potassium 4.8 H D (3.5-4.5) mEq/L Chloride 101 (98-109) mEq/L Carbon Dioxide 32 H (19-29) mEq/L BUN 26 H (7-20) mg/dL Creatinine 0.96 (0.57-1.11) mg/dL Glucose 107 H (70-99) mg/dL Calcium 9.3 (8.6-10.8) mg/dL Active Medications Albuterol Sulfate (Albuterol Inhaler) 2 puff IH Q4HR PRN PRN Reason: Shortness Of Breath Stop: 05/15/17 22:34 Last Admin: 11/15/16 10:35 Dose: 2 puff Allopurinol (Zyloprim) 100 mg PO DAILY [facility] Stop: 05/16/17 09:01 Last Admin: 11/15/16 08:22 Dose: 100 mg Apixaban (Eliquis) 5 mg PO BID [facility] Stop: 05/15/17 22:01 Last Admin: 11/15/16 08:23 Dose: 5 mg Atenolol (Tenormin) 50 mg PO BID [facility] Stop: 05/16/17 09:01 Last Admin: 11/15/16 08:23 Dose: 50 mg Atorvastatin Calcium (Lipitor) 10 mg PO HS [facility] Stop: 05/16/17 21:01 Last Admin: 11/14/16 22:36 Dose: 10 mg Furosemide (Lasix) 40 mg IVP BID [facility] Stop: 05/15/17 21:01 Last Admin: 11/15/16 08:22 Dose: 40 mg Gabapentin (Neurontin) 300 mg PO TID [facility] Stop: 05/16/17 09:01 Last Admin: 11/15/16 08:23 Dose: 300 mg Levothyroxine Sodium (Synthroid) 112 mcg PO DAILY@0630 [facility] Stop: 05/16/17 06:31 Last Admin: 11/15/16 06:20 Dose: 112 mcg Metoprolol Tartrate (Lopressor) 5 mg IVP Q6HR PRN PRN Reason: SEE COMMENTS Stop: 05/16/17 18:15 Naloxone HCl (Narcan) 0.4 mg IVP Q2MIN PRN PRN Reason: Opioid Reversal Stop: 05/15/17 20:28 Nitroglycerin (Nitroglycerin) 0.4 mg SL AD PRN PRN Reason: Chest Pain Stop: 05/15/17 22:34 Ondansetron HCl (Zofran) 4 mg IVP Q8HR PRN PRN Reason: Nausea And Vomiting Stop: 05/15/17 20:28 Last Admin: 11/14/16 23:22 Dose: 4 mg Oxycodone/Acetaminophen (Percocet 10/325) 1 each PO Q6H PRN PRN Reason: Pain Stop: 05/15/17 22:34 Last Admin: 11/14/16 23:22 Dose: 1 each Pantoprazole Sodium (Protonix) 40 mg IVP Q12HR [facility] Stop: 05/16/17 06:01 Last Admin: 11/15/16 06:20 Dose: 40 mg Potassium Chloride (Potassium Chloride) 20 meq PO TID [facility] Stop: 05/16/17 09:01 Last Admin: 11/15/16 08:23 Dose: 20 meq Sucralfate (Carafate) 1 gm GTUBE QIDAC [facility] Stop: 05/15/17 17:31 Last Admin: 11/15/16 06:20 Dose: 1 gm Vitamin D (Vitamin D) 1,000 unit PO DAILY [facility] Stop: 05/16/17 09:01 Last Admin: 11/15/16 08:22 Dose: 1,000 unit - Imaging and Cardiology Echo: report reviewed - EKG Interpretation EKG results cardiology: personally reviewed (A-Fib RVR, rate 120s), other (24 hour tele AVG HR 106, A-Fib.) Consult Discharge Plan - Plan Referrals: Sharath Sims DO [Primary Care Provider] -
[2016-11-15] MEDS: *HR* OxyCODONE/APAP 10/325 TABLET PO PRN (11:54)
[2016-11-15] MEDS: Diltiazem CD (24hr) 180 MG CAPSULE PO SCH (11:55)
--- NOTE | 2016-11-15 14:14 | Internal Med Progress Note ---
Date of Encounter: 11/15/16 Time of Encounter: 10:30 - Assessment and plan (1) Pneumonia Current Visit: Yes Status: Acute Assessment and plan: Chest x-ray consistent with fluid overload with possible pneumonia. Patient has had a harsh, hacking productive cough with thick green sputum that has improved today. We will treat for pneumonia. She was admitted within the last couple months. She has numerous drug allergies and intolerances. She has listed as an anaphylactic reaction to the following antibiotics: Azithromycin, cephalexin, levofloxacin. She has a documented allergy of hives to the following antibiotics: Penicillins and sulfa. It does not appear as if she has a documented allergy to tetracyclines, however attempted to order Doxy but it has latex additives in it so she cannot have this medication. Reviewed the case with pharmacy- there are no antibiotics that this patient can tolerate. She is doing better today with bronchodilators and mucolytics. Will continue to diurese and monitor. Clinically, she is improving but will need another day of diuresis. ITS Impressions Chest X-Ray 11/13/16 14:06 IMPRESSION: 1. Pulmonary vascular congestion with questionable perihilar edema. 2. Bibasilar atelectasis and/or pneumonia. Bilateral perihilar atelectasis. 3. Suspected bilateral pleural effusions. D/ / Lawrence Terrazsa MD / Lawrence Terrazas MD Interpreting Provider: Lawrence Terrazas MD (2) DVT prophylaxis Current Visit: No Status: Acute Assessment and plan: on Eliquis (3) CHF (congestive heart failure) Current Visit: No Status: Acute Assessment and plan: Acute on chronic diastolic heart failure. Echocardiogram from September of this year with preserved ejection fraction of 60% and indeterminate diastolic function. She is on furosemide at home. Diuresing with IV furosemide- will need another day of diuresis. She has crackles on examination with fair to good aeration. She also has 1-2+ pitting edema bilaterally. She states she is not sure whether or not this is normal for her because she states that she never wears socks at home. Mild fluid overload noted on chest x-ray. Patient is on oxygen as needed and is taking off her oxygen at times when she feels better. She has been on oxygen at home for the past 6 weeks or so. Qualifiers: Congestive heart failure type: diastolic Congestive heart failure chronicity: acute on chronic Qualified Code(s): I50.33 - Acute on chronic diastolic (congestive) heart failure (4) Hypothyroidism Current Visit: No Status: Chronic Assessment and plan: Thyroid studies reviewed in September 2016, with TSH low but free T4 and total T3 normal. follow-up outpatient Qualifiers: Hypothyroidism type: acquired Qualified Code(s): E03.9 - Hypothyroidism, unspecified (5) Chest pain Current Visit: Yes Status: Acute Assessment and plan: Patient stating her chest pain is controlled as long as she stays on top of taking her Carafate. Troponin negative 3. Low suspicion for acute coronary syndrome. Cardiology on board to assist with her cardiac medications given that her atrial fibrillation rate is uncontrolled. Recommendation is to diurese her restart the Cardizem, continue her atenolol and her Eliquis. Patient refuses Cardizem. Current heart rate in the 80s, we will continue to trend, patient now stating that her pain radiates between her shoulder blades, will obtain LFTs and lipase. She has been tolerating a regular diet but will rule out gallbladder etiology. Qualifiers: Chest pain type: unspecified Qualified Code(s): R07.9 - Chest pain, unspecified (6) GERD (gastroesophageal reflux disease) Current Visit: Yes Status: Chronic Assessment and plan: Symptoms currently controlled with Carafate. If symptoms return, we will consider possible EGD but possibly can be done on an outpatient basis. Qualifiers: Esophagitis presence: esophagitis presence not specified Qualified Code(s) : K21.9 - Gastro-esophageal reflux disease without esophagitis (7) Atrial fibrillation Current Visit: Yes Status: Chronic Assessment and plan: Rate now better controlled. In review of her chart, patient stopped taking her Cardizem. She told me that it made her feel weird but she was unable to elaborate. She stated that she has had so many adverse reactions to medications that she does not remember the specific reactions. She refuses to take Cardizem. Heart rate was around 100 since admission but is now in the 80' s and she remains stable. Cardiology recommends to restart her Cardizem however she refused. We will continue her atenolol, Eliquis, and continue to diurese her. She will follow up outpatient with cardiology in 1-2 weeks. Continue Eliquis. Of note, she is also listed as being on Plavix although there does not appear to be a reason why she was on Plavix. No CAD history, no history of stents that the patient remembers and not listed in her chart. No history of CVAs. Holding Plavix at this time. Qualifiers: Atrial fibrillation type: chronic Qualified Code(s): I48.2 - Chronic atrial fibrillation (8) Need for home health care Current Visit: Yes Status: Acute Assessment and plan: Patient initially requested home health services however she is reluctant to accept them this week because she states she is moving this week. We will bring her T and PT on board to ascertain their recommendations. patient services rep also brought on board. OT and PT evaluations pending. (9) Morbid obesity with BMI of 40.0-44.9, adult Current Visit: Yes Status: Chronic - Subjective Interval history: Patient seen and examined. Upon examination, patient stating she feels better today and states that she has been able to take her oxygen off at times and has done well. She still endorses shortness of breath above her norm as well as pedal edema worse than her norm but she states that she is starting to feel better. - Constitutional Vitals: Temp Pulse Resp BP Pulse Ox 97.8 F 108 16 113/74 95 11/15/16 11:43 11/15/16 11:43 11/15/16 13:24 11/15/16 11:43 11/15/16 13:24 General appearance: Present: A&O X 3, morbidly obese, pleasant, no acute distress, answers questions appropriately - Head Head exam: Present: atraumatic, normocephalic - Eye Eye exam: Present: PERRL, conjuntiva pink, sclera anicteric Pupils: Present: PERRL - Neck Neck exam general surgery: Present: supple, trachea midline. Absent: lymphadenopathy - Respiratory Respiratory exam: Present: decreased breath sounds, rhonchi. Absent: accessory muscle use, rales, respiratory distress, wheezes - Cardiovascular Cardiovascular exam: Present: RRR, +S1, +S2. Absent: diastolic murmur, gallop, rubs, systolic murmur - GI/Abdominal GI/Abdominal exam: Present: normal bowel sounds, soft, no peritoneal signs. Absent: distended, tenderness - Extremities Exam Extremities exam: Present: pedal edema (1-2+ bilaterally), warm, radial pulses palpable and symetrical. Absent: calf tenderness, cyanotic - Neurological Exam Neurological exam: Present: alert, CN II-XII intact, oriented X3, no focal deficits, strengths equal and symetr throughout. Absent: pronater drift, facial droop, speech deficit - Skin Skin exam: Present: dry, intact, pallor, warm Internal Medicine: Result - Labs CBC & Chem 7: 11/14/16 03:32 11/15/16 04:30 Labs: BMP 11/15/16 04:30 Sodium 144 Potassium 4.8 H D Chloride 101 Carbon Dioxide 32 H BUN 26 H Creatinine 0.96 Glucose 107 H Calcium 9.3 Consult Discharge Plan - Plan Referrals: Sharath Sims DO [Primary Care Provider] -
[2016-11-15 15:18] LABS: Alanine Aminotransferase 25 Units/L (0-55); Albumin 3.4 g/dL (3.5-5.0); Albumin/Globulin Ratio 1.3 (1.1-2.2); Alkaline Phosphatase 66 Units/L (38-126); Aspartate Amino Transferase 28 Units/L (5-34); Bilirubin,Direct 0.2 mg/dL (0.0-0.5); Bilirubin,Indirect 0.4 mg/dL (0.0-1.2); Bilirubin,Total 0.6 mg/dL (0.2-1.2); Globulin 2.6 g/dL (2.4-3.5); Lipase 15 Units/L (8-78)
--- NOTE | 2016-11-15 16:56 | Electrocardiograph Report ---
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
[2016-11-16] MEDS: Pantoprazole 40 MG VIAL IVP SCH ×2 (05:33→16:45)
[2016-11-16 07:04] LABS: Calcium 9.4 mg/dL (8.6-10.8); Potassium 5.2 mEq/L (3.5-4.5)
[2016-11-16] MEDS: *HR* OxyCODONE/APAP 10/325 TABLET PO PRN ×2 (09:48→23:38)
[2016-11-16] MEDS: Furosemide 40 MG/4 ML VIAL IVP SCH ×2 (09:53→20:03)
[2016-11-16] MEDS: APIXABAN 5 MG TABLET PO SCH ×2 (09:56→20:03)
[2016-11-16] MEDS: Diltiazem CD (24hr) 180 MG CAPSULE PO SCH (09:56)
[2016-11-16] MEDS: Cholecalciferol (D-3) 1,000 UNIT TABLET PO SCH (09:56)
[2016-11-16] MEDS: Gabapentin 300 MG CAPSULE PO SCH ×3 (09:57→20:04)
--- NOTE | 2016-11-16 10:29 | Internal Med Progress Note ---
<Frank Foster - Last Filed: 11/16/16 15:50> Date of Encounter: 11/16/16 Time of Encounter: 09:30 - Assessment and plan (1) CHF (congestive heart failure) Current Visit: No Status: Acute Assessment and plan: Acute on chronic diastolic heart failure. Echocardiogram from September of this year with preserved ejection fraction of 60% and indeterminate diastolic function. She is on furosemide at home. Currently receiving additional diuresis with IV Lasix. She also has 1-2+ pitting edema bilaterally. Mild fluid overload noted on chest x-ray. Patient is on oxygen as needed and is taking off her oxygen at times when she feels better. She has been on 2-3 L/ min oxygen at home for the past 6 weeks or so. Continue additional IV Lasix Continue to monitor electrolytes Continue Cardizem, atenolol, alkaline phosphatase Follow-up with cardiology 1-2 weeks Qualifiers: Congestive heart failure type: diastolic Congestive heart failure chronicity: acute on chronic Qualified Code(s): I50.33 - Acute on chronic diastolic (congestive) heart failure (2) Atrial fibrillation Current Visit: Yes Status: Chronic Assessment and plan: Rate now better controlled with use of cardizem. Cardiology was consulted and recommended starting Cardizem, continue atenolol, continuing eloquence, and cardiology follow-up 1-2 weeks Continue diuresis with IV Lasix She will follow up outpatient with cardiology in 1-2 weeks. Continue atenolol Continue Eliquis Holding Plavix at this time, since it is not appear to be reason why she was on it Qualifiers: Atrial fibrillation type: chronic Qualified Code(s): I48.2 - Chronic atrial fibrillation (3) Hyperkalemia Current Visit: Yes Status: Acute Assessment and plan: Patient potassium appears to be elevating over the last couple days. His upper 5.2 today from 4.8 yesterday. She has been receiving potassium supplementation along with her Lasix. She had received 100 mEq in 2 days. We will continue to monitor with daily labs EKG further elevation seen Kayexalate if further elevation seen (4) Epigastric pain Current Visit: Yes Status: Acute Assessment and plan: Patient reports having continued epigastric tenderness, but she reports similar to previous peptic ulcers that she has had in the past. Unlikely ACS at this time given negative workup so far. Continue Carafate Continue Protonix (5) Need for home health care Current Visit: Yes Status: Acute Assessment and plan: Patient reports pain in the process of moving currently. care services manager also brought on board OT and PT evaluations pending (6) DVT prophylaxis Current Visit: No Status: Acute Assessment and plan: Continue home Eliquis (7) Morbid obesity with BMI of 40.0-44.9, adult Current Visit: Yes Status: Chronic - Subjective Interval history: Patient reports having continued shortness of breath she feels is slightly worse than yesterday. She reports having epigastric pain that she states feels like previous ulcers. She also reports continued orthopnea for a difficult to lie down flat because of difficulty breathing. She denies any palpitations, chest pain, or fevers. - Constitutional Vitals: Temp Pulse Resp BP Pulse Ox 98.7 F 91 18 138/89 91 11/16/16 08:25 11/16/16 08:25 11/16/16 08:25 11/16/16 08:25 11/16/16 08:25 General appearance: Present: A&O X 3, morbidly obese, pleasant, no acute distress, answers questions appropriately Exam: General: Cooperative, pleasant, no acute distress, alert and oriented 3, answers questions appropriately HEENT: Normocephalic, Conjunctiva pink, sclera anicteric, PERRL, oral mucosa moist, no orophargeal erythema or exudates Respiratory: No accessory muscle usage, mild bibasilar rales auscultated bilaterally Cardiovascular: Tachycardia, regular rhythm, S1 and S2 present, no murmurs/rubs/ gallops/clicks appreciated GI/abdominal: Nondistended, nontender, soft, normal bowel sounds, no peritoneal signs Extremities: No calf tenderness, noncyanotic, 1-2+ pitting edema in lower extremities bilaterally, warm, lower extremity pulses palpable and symmetrical Neurological: Alert and oriented 3, no facial droop, no focal deficits Skin: Dry, intact, normal color Internal Medicine: Result - Labs CBC & Chem 7: 11/14/16 03:32 11/16/16 06:33 Labs: BMP 11/16/16 06:33 Sodium 141 Potassium 5.2 H Chloride 98 Carbon Dioxide 34 H BUN 28 H Creatinine 1.10 Glucose 101 H Calcium 9.4 Consult Discharge Plan - Plan Referrals: Jacquelyn Katz, MEGAN [Partnered Physician] - 12/02/16 3:00 pm Sharath Sims DO [Primary Care Provider] - <Lamonte Zuñiga - Last Filed: 11/16/16 17:56> Date of Encounter: 11/16/16 - Constitutional Vitals: Temp Pulse Resp BP Pulse Ox 98.1 F 61 16 101/64 96 11/16/16 15:48 11/16/16 15:48 11/16/16 15:48 11/16/16 15:48 11/16/16 15:48 Internal Medicine: Result - Labs CBC & Chem 7: 11/14/16 03:32 11/16/16 06:33 Labs: BMP 11/16/16 06:33 Sodium 141 Potassium 5.2 H Chloride 98 Carbon Dioxide 34 H BUN 28 H Creatinine 1.10 Glucose 101 H Calcium 9.4 - Attending Attestation I examined this patient and my medical decision-making was reviewed with the [employer] OPERATOR/PA/Advanced Practice Nurse/Resident Physician. I agree with the documented findings, disposition and treatment plan as described except to the extent set forth below. Agree with Dr. Foster, will monitor potassium levels. Continue with rate control meds.
[2016-11-17] MEDS: Mag Hydrox/Al Hydrox/Simeth 30 ML UDC PO PRN ×2 (01:35→20:41)
[2016-11-17 05:46] LABS: Calcium 9.9 mg/dL (8.6-10.8); Phosphorous 4.2 mg/dL (2.3-4.7); Potassium 3.7 mEq/L (3.5-4.5)
[2016-11-17] MEDS: Pantoprazole 40 MG VIAL IVP SCH ×2 (06:47→09:34)
[2016-11-17] MEDS: APIXABAN 5 MG TABLET PO SCH ×2 (09:33→20:38)
[2016-11-17] MEDS: Diltiazem CD (24hr) 180 MG CAPSULE PO SCH (09:33)
[2016-11-17] MEDS: Gabapentin 300 MG CAPSULE PO SCH ×3 (09:33→20:38)
[2016-11-17] MEDS: Cholecalciferol (D-3) 1,000 UNIT TABLET PO SCH (09:33)
--- NOTE | 2016-11-17 09:59 | Internal Med Progress Note ---
<Frank Foster - Last Filed: 11/17/16 09:55> Date of Encounter: 11/17/16 Time of Encounter: 09:10 - Assessment and plan (1) CHF (congestive heart failure) Current Visit: No Status: Acute Assessment and plan: Acute on chronic diastolic heart failure. Echocardiogram from September of this year with preserved ejection fraction of 60% and indeterminate diastolic function. She is on furosemide at home. Currently receiving additional diuresis with IV Lasix. She also has 1-2+ pitting edema bilaterally. Mild fluid overload noted on chest x-ray at admission. Patient is on oxygen as needed and is taking off her oxygen at times when she feels better. She has been on 2-3 L/min oxygen at home for the past 6 weeks or so. She appears to be overdiuresis per her labs this morning with some contraction alkalosis as well as increasing acute kidney injury. We will reduce patient Lasix to her home dose of 80 mg daily. Stop IV Lasix, continue home dose Lasix of 80 mg daily by mouth Continue to monitor electrolytes Continue Cardizem, atenolol, alkaline phosphatase Follow-up with cardiology 1-2 weeks Qualifiers: Congestive heart failure type: diastolic Congestive heart failure chronicity: acute on chronic Qualified Code(s): I50.33 - Acute on chronic diastolic (congestive) heart failure (2) Atrial fibrillation Current Visit: Yes Status: Chronic Assessment and plan: Rate now better controlled with use of cardizem. Cardiology was consulted and recommended starting Cardizem, continue atenolol, continuing eliquis, and cardiology follow-up 1-2 weeks Start home dose Lasix by mouth She will follow up outpatient with cardiology in 1-2 weeks. Continue atenolol Continue Eliquis Holding Plavix at this time, since it is not appear to be reason why she was on it Qualifiers: Atrial fibrillation type: chronic Qualified Code(s): I48.2 - Chronic atrial fibrillation (3) Hyperkalemia Current Visit: Yes Status: Acute Assessment and plan: Patient potassium appears to be elevating over the last couple days. She had been receiving potassium supplementation along with her Lasix. Her potassium is under 3.7 today. Patient potassium seems to be improved but, We will continue to monitor with daily labs EKG further elevation seen Kayexalate if further elevation seen (4) Epigastric pain Current Visit: Yes Status: Acute Assessment and plan: Patient reports having continued epigastric tenderness, but she reports similar to previous peptic ulcers that she has had in the past. Unlikely ACS at this time given negative workup so far. Continue Carafate Stop Protonix, start omeprazole (5) Need for home health care Current Visit: Yes Status: Acute Assessment and plan: Patient reports pain in the process of moving currently. agricultural services director also brought on board OT and PT evaluations pending (6) DVT prophylaxis Current Visit: No Status: Acute Assessment and plan: Continue home Eliquis (7) Morbid obesity with BMI of 40.0-44.9, adult Current Visit: Yes Status: Chronic - Subjective Interval history: Patient reports feeling slightly worse than yesterday. Said she is unable to lie down due to shortness of breath. She states she has continued chest/ epigastric pain. She denies fever/chills, reports cough with feeling of wanting to cough something up and is asking for breathing treatment. - Constitutional Vitals: Temp Pulse Resp BP Pulse Ox 98.0 F 67 17 145/80 96 11/17/16 07:16 11/17/16 07:16 11/17/16 08:01 11/17/16 07:16 11/17/16 08:01 General appearance: Present: A&O X 3, morbidly obese, pleasant, no acute distress, answers questions appropriately Exam: General: Cooperative, pleasant, no acute distress, alert and oriented 3, answers questions appropriately HEENT: Normocephalic, Conjunctiva pink, sclera anicteric, PERRL, oral mucosa moist, no orophargeal erythema or exudates Respiratory: No accessory muscle usage, mild bibasilar rales auscultated bilaterally Cardiovascular: Tachycardia, regular rhythm, S1 and S2 present, no murmurs/rubs/ gallops/clicks appreciated GI/abdominal: Nondistended, nontender, soft, normal bowel sounds, no peritoneal signs Extremities: No calf tenderness, noncyanotic, 1-2+ pitting edema in lower extremities bilaterally, warm, lower extremity pulses palpable and symmetrical Neurological: Alert and oriented 3, no facial droop, no focal deficits Skin: Dry, intact, normal color Internal Medicine: Result - Labs CBC & Chem 7: 11/14/16 03:32 11/17/16 05:01 Labs: BMP 11/17/16 05:01 Sodium 143 Potassium 3.7 D Chloride 94 L Carbon Dioxide 40 H* BUN 29 H Creatinine 1.12 H Glucose 128 H Calcium 9.9 Consult Discharge Plan - Plan Referrals: Jacquelyn Katz CNP [Partnered Physician] - 12/02/16 3:00 pm Sharath Sims DO [Primary Care Provider] - <Lamonte Zuñiga Raine - Last Filed: 11/17/16 17:30> Date of Encounter: 11/17/16 - Constitutional Vitals: Temp Pulse Resp BP Pulse Ox 98.4 F 91 17 143/81 94 11/17/16 15:31 11/17/16 15:31 11/17/16 16:24 11/17/16 15:31 11/17/16 16:24 Internal Medicine: Result - Labs CBC & Chem 7: 11/14/16 03:32 11/17/16 05:01 Labs: BMP 11/17/16 05:01 Sodium 143 Potassium 3.7 D Chloride 94 L Carbon Dioxide 40 H* BUN 29 H Creatinine 1.12 H Glucose 128 H Calcium 9.9 - Attending Attestation I examined this patient and my medical decision-making was reviewed with the SERVICE MEMBER/PA/Advanced Practice Nurse/Resident Physician. I agree with the documented findings, disposition and treatment plan as described except to the extent set forth below. Decrease dose of lasix, monitor electrolytes and bmp tomorrow. D/W patient.
[2016-11-17] MEDS: Ipratropium/Albuterol Neb 3 ML IH SCH ×3 (10:58→22:28)
[2016-11-17] MEDS: Furosemide 40 MG TABLET PO SCH (13:26)
[2016-11-17] MEDS: *HR* OxyCODONE/APAP 10/325 TABLET PO PRN ×2 (15:57→22:45)
[2016-11-18] MEDS: Ipratropium/Albuterol Neb 3 ML IH SCH ×2 (05:07→10:53)
[2016-11-18 06:09] LABS: BUN/Creatinine Ratio 27 (6-26); Blood Urea Nitrogen 24 mg/dL (7-20); Calcium 9.2 mg/dL (8.6-10.8); Carbon Dioxide 34 mEq/L (19-29); Chloride 98 mEq/L (98-109); Glucose 111 mg/dL (70-99); Magnesium 2.2 mg/dL (1.6-2.6); Osmolality,Calculated 299 (280-300); Phosphorous 4.4 mg/dL (2.3-4.7); Potassium 4.2 mEq/L (3.5-4.5); Sodium 142 mEq/L (136-145); eGFR For African Americans > 60 (> 60); eGFR For Non-African Americans > 60 (> 60)
[2016-11-18] MEDS: Diltiazem CD (24hr) 180 MG CAPSULE PO SCH (08:19)
[2016-11-18] MEDS: Furosemide 40 MG TABLET PO SCH (08:19)
[2016-11-18] MEDS: APIXABAN 5 MG TABLET PO SCH (08:20)
[2016-11-18] MEDS: Cholecalciferol (D-3) 1,000 UNIT TABLET PO SCH (08:20)
[2016-11-18] MEDS: Gabapentin 300 MG CAPSULE PO SCH (08:20)
[2016-11-18] MEDS ORDERED: Ondansetron ODT 4 MG TAB.RAPDIS SL PRN (08:29)
--- NOTE | 2016-11-18 11:22 | Discharge Summary ---
<KristinFrank - Last Filed: 11/18/16 11:16> Date of Encounter: 11/18/16 Time of Encounter: 08:55 - Discharge Diagnosis (1) CHF (congestive heart failure) Priority: Primary Status: Acute Qualifiers: Congestive heart failure type: diastolic Congestive heart failure chronicity: acute on chronic Qualified Code(s): I50.33 - Acute on chronic diastolic (congestive) heart failure (2) Atrial fibrillation Priority: Primary Status: Chronic Qualifiers: Atrial fibrillation type: chronic Qualified Code(s): I48.2 - Chronic atrial fibrillation (3) Hyperkalemia Priority: Secondary Status: Acute (4) Epigastric pain Priority: Secondary Status: Acute (5) Need for home health care Priority: Primary Status: Acute (6) DVT prophylaxis Priority: Secondary Status: Acute (7) Morbid obesity with BMI of 40.0-44.9, adult Priority: Secondary Status: Chronic - Discharge Medications Prescriptions: Ondansetron ODT [Zofran ODT] 4 mg SL Q8HR PRN 14 Days PRN Reason: Nausea And Vomiting Diltiazem CD (24hr) [Cardizem CD] 180 mg PO DAILY 30 Days Home Medications: Allopurinol [Zyloprim 100 MG] 100 mg PO DAILY 11/03/15 [History] Atenolol [Tenormin] 50 mg PO BID 11/03/15 [History] Atorvastatin [Lipitor] 10 mg PO HS 11/03/15 [History] Cholecalciferol (D-3) [Vitamin D] 5,000 unit PO DAILY 11/03/15 [History] Furosemide [Lasix] 80 mg PO DAILY 11/03/15 [History] Gabapentin [Neurontin] 300 mg PO TID 11/03/15 [History] Nitroglycerin [Nitrostat] 0.4 mg SL AD PRN 11/03/15 [History] OxyCODONE/APAP 10/325 [Percocet 10/325 MG] 1 tab PO Q4-6H PRN 11/03/15 [History] Potassium Chloride [K-Tab ER] 20 meq PO TID 11/03/15 [History] Albuterol Sulfate [Proair Hfa] 2 puff IH Q4HR PRN 10/03/16 [History] FLUoxetine HCl [Prozac] 20 mg PO DAILY 10/03/16 [History] Oxygen 2 l .ROUTE AD 10/03/16 [History] Apixaban [Eliquis] 5 mg PO BID 11/13/16 [History] Ranitidine HCl [Heartburn Relief] 150 mg PO BID 11/13/16 [History] Levothyroxine [Levothyroxine Sodium] 137 mcg PO DAILY 11/14/16 [History] Omeprazole [PriLOSEC] 20 mg PO DAILY 11/14/16 [History] Diltiazem CD (24hr) [Cardizem CD] 180 mg PO DAILY 30 Days 11/18/16 [Rx] Ondansetron ODT [Zofran ODT] 4 mg SL Q8HR PRN 14 Days 11/18/16 [Rx] Allergies/Adverse Reactions: Allergies aspirin Allergy (Verified 10/03/16 09:58) Anaphylaxis azithromycin Allergy (Verified 10/03/16 09:58) Anaphylaxis cephalexin Allergy (Verified 10/03/16 09:58) Anaphylaxis clonidine Allergy (Verified 10/03/16 09:58) Anaphylaxis Influenza Virus Vaccines Allergy (Verified 10/03/16 09:58) Anaphylaxis iodine Allergy (Verified 10/03/16 09:58) Anaphylaxis latex Allergy (Verified 10/03/16 09:58) Anaphylaxis levofloxacin [From Levaquin] Allergy (Verified 10/03/16 09:58) Anaphylaxis nadolol Allergy (Verified 10/03/16 09:58) Anaphylaxis nifedipine Allergy (Verified 10/03/16 09:58) Anaphylaxis Penicillins Allergy (Verified 11/03/15 15:04) Hives Pneumococcal Vaccine Allergy (Verified 10/03/16 09:58) Anaphylaxis Sulfa (Sulfonamide Antibiotics) Allergy (Verified 11/03/15 15:04) Hives Date of admission: 11/15/16 18:01 Primary care physician: Gulshan Hemphill Discharging clinician: Frank Foster Anticipated date of discharge: 11/18/16 - Patient Status Disposition: Home, Self-Care Condition: Good Functional capacity at discharge: independent ambulation Overall status at discharge: patient is progressing back to baseline - Discharge Instructions Instructions: Diltiazem (By mouth), Ondansetron (Injection), Heart Failure (DC) , Chest Pain (DC) Follow Up With: Jacquelyn Katz CNP [Partnered Physician] - 12/02/16 3:00 pm Sharath Sims DO [Primary Care Provider] - 11/26/16 1:30 pm Additional Instructions: Take all medications as prescribed: Zofran SL as needed for nausea Diltiazem 180 mg daily Obtain labwork (basic metabolic panel) in 1 week prior to seeing your PCP Follow up with your PCP in 1-2 weeks Follow up with cardiology in 2-4 weeks Return to hospital if worsening shortness of breath or swelling. Or development of crushing chest pain that is made worse with exertion. - Diet and Activity Activity: increase activity as tolerated, resume usual activities as tolerated Diet: advance to your usual diet, low salt diet Interval History: Patient reports that she is feeling better today. She states that she was able to sleep in the bed last night and was able to lie down without difficulty. She reports that she has been able to cough a little more since having the breathing treatments, that she describes as a good thing. Hospital course: Ms. Santoyo is a 71 year old female with history of CHF, COPD, htn, and CKD IV who presented to [facility] on 11/13/16 due to the development of increasing shortness of breath, edema, and chest pain. She was found to be having both an exacerbation of CHF as well as A. Fib with RVR. Cardiology was consulted. Due to concern she underwent of ACS her troponins were trended and had ECG performed. Her troponins were all negative and there were no concerning signs of acute ischemia on ECG. She also underwent IV diuresis with lasix (40 mg IV BID) and was started on diltiazem for her atrial fibrillation. She was prescribed the diltiazem previously, but had not been taking it. After several days of diuresis she was transitioned back to her home, oral dose of lasix and was continued on the diltiazem. At the time of discharge she has had improvement in her symptoms and is safe/stable for discharge with her PCP and cardiology. - Time Spent with Patient Total time spent providing and/or coordinating discharge services: - Constitutional Vitals: Temp Pulse Resp BP Pulse Ox 97.4 F L 84 16 156/89 97 11/18/16 08:18 11/18/16 08:18 11/18/16 10:54 11/18/16 08:18 11/18/16 10:54 General appearance: Present: A&O X 3, morbidly obese, pleasant, no acute distress, answers questions appropriately Exam: General: Cooperative, pleasant, no acute distress, alert and oriented 3, answers questions appropriately HEENT: Normocephalic, Conjunctiva pink, sclera anicteric, PERRL, oral mucosa moist, no orophargeal erythema or exudates Respiratory: No accessory muscle usage, CTA b/l Cardiovascular: Tachycardia, regular rhythm, S1 and S2 present, no murmurs/rubs/ gallops/clicks appreciated GI/abdominal: Nondistended, nontender, soft, normal bowel sounds, no peritoneal signs Extremities: No calf tenderness, noncyanotic, 1-2+ pitting edema in lower extremities bilaterally, warm, lower extremity pulses palpable and symmetrical Neurological: Alert and oriented 3, no facial droop, no focal deficits Skin: Dry, intact, normal color <Lamonte Zuñiga - Last Filed: 11/18/16 16:14> Date of Encounter: 11/18/16 Date of admission: 11/15/16 18:01 Primary care physician: Gulshan Hemphill Hospital course: Ms. Santoyo is a 71 year old female - Time Spent with Patient Total time spent providing and/or coordinating discharge services: - Constitutional Vitals: Temp Pulse Resp BP Pulse Ox 98.0 F 89 20 131/79 97 11/18/16 11:28 11/18/16 11:28 11/18/16 11:28 11/18/16 11:28 11/18/16 12:45 - Attending Attestation I examined this patient and my medical decision-making was reviewed with the SURGICAL ATTENDANT/PA/Advanced Practice Nurse/Resident Physician. I agree with the documented findings, disposition and treatment plan as described except to the extent set forth below. Stable for discharge home today. Resume home meds.
[2016-11-18 11:31] VITALS: BP 131/79
== END 2016-11-18 16:15 | disposition home or self-care (01) | DRG 291 ==
LOC: EMEROO 13:59 → 3BNU 13:59 → SUATTDRO 11-15 18:01
PROVIDERS: ADMIT Nurse Practitioner Acute Care; ATTEND Internal Medicine